=== PATIENT | male | born 1955 | race Caucasian/White ===

== ENCOUNTER 2017-03-10 12:39 | Observation (INO) | payer BC ==
[2017-03-10] MEDS ORDERED: NS 0.9% 1000 ML* 1,000 ML IV ONE (12:49)
--- NOTE | 2017-03-10 13:07 | RAD ---
Indication: Neurologic changes. CT of the brain was performed without IV contrast. There are no prior studies available for comparison. Ventricular structures are midline. No midline shift is noted. The extra-axial spaces are unremarkable. There is no evidence of intracranial mass or hemorrhage. Periventricular lucency consistent with chronic ischemic White matter change is noted. Old lacunar infarct is noted in the left basal ganglia. Mastoid air cells and paranasal sinuses are otherwise unremarkable IMPRESSION: Chronic ischemic White matter change. No intracranial mass or hemorrhage is noted. Old lacunar infarct left basal ganglia. Dr. Cain was notified of the results at 1304 hours.
[2017-03-10 13:10] LABS: Hematocrit 44 % (42-52); Hemoglobin 14.7 g/dl (14.0-18.0); Mean Corpuscular HGB Conc 34 g/dl (31-36); Mean Corpuscular Hemoglobin 32 pg (27-31); Mean Corpuscular Volume 94 fL (80-94); Mean Platelet Volume 8 um3 (7.4-10.4); Red Blood Count 4.64 10^6/ul (4.0-5.4); Red Cell Distribution Width 13 % (10.5-15); White Blood Count 8.7 10^3/ul (3.5-10.8)
[2017-03-10 13:25] LABS: Albumin 4.3 g/dL (3.2-5.2); BUN/Creatinine Ratio 16.8 (8-20); Calcium 9.9 mg/dL (8.6-10.3); EGFR African American 104.4 (>60); EGFR Non-African American 81.1 (>60); Globulin 2.9 g/dL (2-4); HDL Cholesterol 40.5 mg/dL; Potassium 4.6 mmol/L (3.5-5.0); Total Bilirubin 1.2 mg/dL (0.2-1.0); Total Protein 7.2 g/dL (6.4-8.9)
[2017-03-10 13:26] LABS: Troponin I 0.01 ng/mL (<0.04)
--- NOTE | 2017-03-10 13:36 | RAD ---
INDICATION: Code myles COMPARISON: None TECHNIQUE: An AP seated portable view obtained at 1325 hours is submitted. FINDINGS: Bones/Soft Tissues: There are no acute bony findings. Cardiomediastinal: The cardiomediastinal silhouette is normal. Lungs: There are no focal infiltrates. There is mild peripheral airspace disease in left lung base or this is related to pleural change. Pleura: Suspect pleural reactive change left hemithorax perhaps with pleural calcification. There is mild blunting of left posterior neck angle Other: None IMPRESSION: NO ACUTE FINDINGS. SUSPECTED CHRONIC PLEURAL REACTIVE CHANGE LEFT CHEST. SUGGEST CORRELATION WITH ANY PRIOR RADIOGRAPHS AND/OR FOLLOW-UP IF NONE ARE AVAILABLE
[2017-03-10] MEDS ORDERED: Iodixanol* (CONTRAST) 320 MG/ML 100 ML SDV IV ONE (14:15)
--- NOTE | 2017-03-10 14:43 | RAD ---
HISTORY: Stuttering aphasia COMPARISONS: Head CT dated March 10, 2017 TECHNIQUE: Multiple contiguous axial CT scans were obtained of the head and neck After the administration of nonionic intravenous contrast timed to the systemic arterial phase of contrast enhancement. Coronal and sagittal multiplanar reformations are submitted for review. Multiple 3-D maximum intensity projection reconstructions are also submitted for review. FINDINGS: CTA NECK: AORTIC ARCH: There is a bovine configuration, with the left common carotid artery originating from the brachiocephalic trunk. There is no ostial or proximal stenosis of the cephalic great vessels. RIGHT VERTEBRAL ARTERY: The right vertebral artery is patent along its course, without stenosis. LEFT VERTEBRAL ARTERY: The left vertebral artery is patent along its course, without stenosis. DOMINANCE: The vertebral arteries are codominant. RIGHT COMMON CAROTID ARTERY: The right common carotid artery is patent. The right carotid bifurcation occurs at C4-C5 RIGHT INTERNAL CAROTID ARTERY: There is atheromatous disease of the right carotid bifurcation, without right internal carotid artery stenosis by NASCET criteria. RIGHT EXTERNAL CAROTID ARTERY: The right external carotid artery is unremarkable. LEFT COMMON CAROTID ARTERY: The left common carotid artery is patent. The left carotid bifurcation occurs at C5 LEFT INTERNAL CAROTID ARTERY: There is atheromatous plaque of the proximal left internal carotid artery, there is narrowing of the proximal internal carotid artery of approximately 30% by NASCET criteria. LEFT EXTERNAL CAROTID ARTERY: The left external carotid artery is unremarkable. VENOUS CIRCULATION: The venous system is unremarkable. SALIVARY GLANDS: The parotid glands, submandibular glands, sublingual glands are normal. NASAL CAVITY/NASOPHARYNX: The nasal cavity and nasopharynx are normal. ORAL CAVITY/OROPHARYNX: The oral cavity is obscured by streak artifact from dental amalgam. The visualized oral cavity and oropharynx are unremarkable. LARYNGEAL APPARATUS/HYPOPHARYNX: The laryngeal apparatus and hypopharynx are normal. UPPER AIRWAY/UPPER ESOPHAGUS: The visualized upper airway and esophagus are normal. LUNG APICES: The lung apices are clear. THYROID GLAND: The thyroid gland is normal. LYMPH NODES: There is no lymphadenopathy by size criteria. BONES AND SOFT TISSUES: No bone or soft tissue abnormalities are noted. CTA HEAD: INTRACRANIAL CIRCULATION: There is no aneurysm, vascular malformation, occlusion, or stenosis of the visualized intracranial circulation. The anterior communicating artery complex is clear. Bilateral posterior communicating arteries are identified. VENOUS CIRCULATION: The venous system is unremarkable. PERFUSION: There is no obvious parenchymal perfusion deficit. HEMORRHAGE/INFARCT: There is no hemorrhage or acute infarct. MASSES/SHIFT: There is no mass or shift. EXTRA-AXIAL SPACES: There are no extra-axial fluid collections. SULCI AND VENTRICLES: The sulci and ventricles are normal in size and position for the patient's stated age. CEREBRUM: There is hypoattenuation of the periventricular and subcortical white matter. BRAINSTEM: There are no focal parenchymal abnormalities. CEREBELLUM: There are no focal parenchymal abnormalities. PARANASAL SINUSES: There is diffuse thickening of ethmoid air cells and maxillary sinuses bilaterally. ORBITS: The orbits are unremarkable. BONES AND SOFT TISSUE: No bone or soft tissue abnormalities are noted. OTHER: There is an empty sella. The sella is expanded. There is a left upper lobe lung nodule measuring 0.5 cm. IMPRESSION: 1. ATHEROMATOUS DISEASE, WITH APPROXIMATELY 30% LEFT INTERNAL CAROTID ARTERY STENOSIS BY NASCET CRITERIA. 2. NO ANEURYSM, VASCULAR MALFORMATION, OCCLUSION, OR STENOSIS OF THE VISUALIZED INTRACRANIAL CIRCULATION. 3. CHRONIC SMALL VESSEL ISCHEMIC CHANGES. 4. ENLARGED, EMPTY SELLA. 5. 0.5 CM NODULE OF THE LEFT UPPER LOBE. THE RECOMMENDATIONS FOR FOLLOWUP AND MANAGEMENT OF AN INCIDENTALLY DETECTED PULMONARY NODULE LESS THAN 6 MM IN SIZE, IN A PATIENT WITHOUT A HISTORY OF MALIGNANCY, INCLUDE NO FOLLOWUP FOR A LOW-RISK PATIENT OR OPTIONAL FOLLOWUP CT IN 12 MONTHS FOR A HIGH RISK PATIENT. NOTES: SIZE = AVERAGE LENGTH AND WIDTH; HIGH RISK IS DEFINED A HISTORY OF SMOKING OR OTHER KNOW RISK FACTORS FOR LUNG CANCER; LOW RISK IS DEFINED MINIMAL OR ABSENT HISTORY OF SMOKING OR OTHER KNOWN RISK FACTORS. Ovi, H, STACY Hagen, ASHA Martínez, et al (2017) "Guidelines for Management of Incidental Pulmonary Nodules Detected on CT Images: From the Fleischner Society 2017." Radiology; 284(1): 228-243. doi:10.1148/radiol.1634711282 CPT II Codes: 3100F
--- NOTE | 2017-03-10 16:00 | CONS ---
NEUROLOGY CONSULTATION: DATE OF CONSULT: 03/10/17 LOCATION: The patient is in the emergency department. REQUESTING PHYSICIAN: Tyler Cain MD REASON FOR CONSULT: Code Lynn. HISTORY OF PRESENT ILLNESS: Tommie Mcduffie is a 61-year-old man with a history of prediabetes, hypertension, hyperlipidemia and seasonal allergies who woke up this morning with right hand numbness. He and his did not think much of it because he in the past has had cervical stenosis and had similar numbness in his hand, though he had not really experienced numbness like this for many years. He and his went to [place] to go [employer] and at approximately 11:45, he had a brief episode of expressive aphasia. His reports that he was trying to speak, but none of the words made any sense. This lasted 15 to 20 seconds and then resolved. Fifteen minutes later, he had another similar episode. At that point, they decided to come to the emergency department for evaluation. With each episode of aphasia, his hand numbness would increase, but in between his hand never really felt normal. They note that 2 weeks ago, he also had an episode of right hand numbness associated with brief garbled speech, which only lasted seconds as well. Over the past couple of weeks, he has had recurrent intermittent periods of right hand numbness as well. The numbness today; however, has persisted much longer than any of his previous episodes. He tells me that when he was 20 years old, he had a "blood clot" in his brain. He is not sure of details beyond this, but says that he suddenly developed right -sided weakness and then while in the ambulance being transported here that resolved. However, he says he was transferred to [place] and spent a week there , though by his recollection he was back to normal and did not require rehab after that stay. He is not clear if he had bleeding in the brain or if he had an ischemic stroke or something else. He and his originally told me he has not had other problems with blood clots aside from superficial phlebitis, but then stated that he was told he'd had a DVT in his "hip" by Dr. Mcnally. Ever since then; however, he thinks he has been on an aspirin a day and his says he has been taking an aspirin for as long as she has known him. Neurology consultation was requested to evaluate for acute stroke and treatment recommendations. PAST MEDICAL HISTORY: 1. Prediabetes/diabetes. 2. Hypertension. 3. Seasonal allergies. 4. Hyperlipidemia. 5. Phlebitis. 6. Glaucoma. PAST SURGICAL HISTORY: He has had varicose vein surgery. HOME MEDICATIONS: 1. Cosopt drops. 2. Lumigan drops. 3. Aspirin 325 mg daily. 4. Pravastatin 40 mg daily. 5. Metformin 500 mg daily. 6. Lisinopril 2.5 mg daily. 7. Doxycycline 100 mg b.i.d., which he has been taking for an upper respiratory infection. ALLERGIES: No known drug allergies listed in [employer], but the patient reports to me that he has an allergy to PENICILLIN with unknown reaction. FAMILY HISTORY: Noncontributory at this time. SOCIAL HISTORY: He has been an intermittent smoker over the years. More recently he has been smoking for the past 4 years, approximately half pack a day and has been cutting down significantly since December and quit about 4 days ago. He does not drink any significant alcohol and does not use illicit drugs. 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 REVIEW OF SYSTEMS: He has had an upper respiratory infection recently and is on antibiotics. He denies any cardiac symptoms such as palpitations or chest pains. PHYSICAL EXAMINATION: Vital Signs: Temperature 96.1; blood pressure 109/89 in the computer, but when I was in the room it was 154/90; heart heart rate 65; oxygen saturation is 100% on room air. On general examination, he is in no acute distress. He was initially able to speak relatively fluently, but did have a brief episode when I was in the room where he suddenly could not get his words out and when presented with a pen, he called it a tap. This resolved within about 10 seconds and I reclined him down to about 45 degrees. His heart is in a regular rate and rhythm. His skin is intact. There is no extremity edema. Lungs are clear. On neurologic examination, he is fully awake, alert, and oriented. He, when presented with the stroke cards, was unable to name a cactus or a hammock, but his says he would not be able to name a hammock at baseline because he has a bad memory. He has no significant dysarthria and his feels his speech is at his baseline. He is able to read off the stroke cards. Pupils were equal and round at 4 mm and the right reacted to 3 mm while the left was to 2 mm. He does have a history of eye surgery bilaterally for his glaucoma. There is some irregularity in the iris on the left superior margin. His gaze is mid position and his versions are full without nystagmus. Frost are full to confrontation with no extinction. Facial sensation and musculature is full and symmetric. Hearing is intact to voice. The palate elevates symmetrically and the tongue is midline. On motor examination, he has normal bulk and tone in the upper and lower extremities. Strength was full in the bilateral upper extremities and left lower extremity. I questioned whether there was some slight give in his right hip flexor and he seemed to struggle more with raising his right leg off the bed, but did not drift significantly. There was no pronator drift. Sensory exam, right hand has decreased light touch in the fingertips in the dorsum of the hand. [id number] was intact without ataxia. I did not ambulate him. Reflexes were 2+ in the upper extremities, 2+ at the right knee, 1+ at the left knee, but downgoing toes. There is no ankle clonus. NIH stroke scale is 2 (1 for aphasia and 1 sensory). DIAGNOSTIC STUDIES/LAB DATA: His CBC is overall unremarkable with slightly elevated MCH of 32, monocyte percentage of 10 which is elevated. Chemistry panel is notable for a glucose of 109 and nonfasting lipid panel shows triglycerides 179, total cholesterol 171, LDL 95, and HDL 40.5. His total bilirubin is 1.2. Coagulation studies are normal. His head CT was personally reviewed and this shows a probable old infarct in the left basal ganglia near the head of the caudate. In addition, there is periventricular hypodensities bilaterally which are worse on the left. These appear to be chronic, but it is unclear if there could be some subacute component. Finally, I question whether on slice 10, there could be suggestion of a hyperdense MCA on the left. IMPRESSION: Tommie Mcduffie is a 61-year-old man with vascular risk factors including diabetes, prediabetes as well as hypertension and a questionable history of an old stroke at the age of 20 which presumably affected the left hemisphere who presented to the hospital with the acute onset of transient expressive aphasia at 11:45 this morning, but occurring in the context of more fixed right hand numbness which was present upon awakening. I am concerned about a left MCA partial stroke here which could be subcortical in nature, but given the CT scan which could suggest the presence of a partially dense MCA on the left, we are going to send him for a CTA of the head and neck urgently at this time. I do not feel that he is a candidate for tPA given the presence of the fixed numbness in his right hand which he woke up with and which does not seem to follow a single nerve distribution, and cannot reliably be attributed to a cervical radiculopathy which he has not had problems with for years. At this point, we will hold on admission to the hospital pending the results of the CT angiogram since this could possibly slip box changer. If no large vessel occlusion is seen, then he should be admitted to the hospital for stroke workup including MRI scan of the brain, fasting lipid profile, hemoglobin A1c, telemetry and echocardiogram with bubble study. Thank you for this consultation. I will follow the patient along. [id number]/[facility] #: [id number] IDALIA
[2017-03-10 16:45] LABS: Urine Bilirubin Negative (Negative); Urine Glucose Negative (Negative); Urine Nitrite Negative (Negative)
--- NOTE | 2017-03-10 18:21 | RAD ---
INDICATION: CVA. COMPARISON: Comparison is made with a prior CT of the brain from March 10, 2017. TECHNIQUE: Sagittal T1, axial T1, T2, susceptibility, FLAIR and diffusion weighted images were obtained. FINDINGS: The ventricles, cisterns and sulci are prominent consistent with diffuse atrophy. There are prominent areas of increased signal intensity on T2-weighted images present within the subcortical and periventricular white matter most consistent with severe chronic small vessel ischemic changes. There are several small areas of restricted diffusion present in the posterior left parietal lobe involving the cortex and subcortical white matter suggestive of an acute to subacute infarct. There is no evidence for hemorrhage. There is an empty sella present. There is mucosal thickening within the maxillary and ethmoid sinuses suggestive of chronic sinusitis. IMPRESSION: 1. THERE ARE SEVERAL SMALL AREAS OF RESTRICTED DIFFUSION IN THE POSTERIOR LEFT PARIETAL LOBE SUGGESTIVE OF AN ACUTE TO SUBACUTE INFARCT. 2. FINDINGS MOST CONSISTENT WITH SEVERE CHRONIC SMALL VESSEL ISCHEMIC CHANGES. 3. EMPTY SELLA.
[2017-03-10] MEDS ORDERED: Dextrose 50% Syringe 50 ML* 25 GM/50 ML SYRINGE IV PUSH PRN (19:47)
[2017-03-10] MEDS: DOXYcycline CAP(*) 100 MG PO SCH (20:29)
[2017-03-10] MEDS ORDERED: Atorvastatin* 10 MG TAB PO SCH (21:00)
[2017-03-10] MEDS: Heparin VIAL(*) 5000 UNITS/ML VIAL (FIVE THOUSAND) SUBCUT SCH (21:12)
--- NOTE | 2017-03-10 21:40 | ED ---
Josy Sellers Nilda, scribed for Tyler Cain MD on 03/10/17 at 1305 . Neurological HPI - HPI Summary HPI Summary: This patient is a 61 year old M [facility] accompanied by with a chief complaint of stroke-like symptoms today. states pt woke up with RUE numbness and tingling. She notes this has also happened a few days ago which is why they originally thought he pinched a nerve. Per , 1 hour ago, pt had 2 episodes of "speaking gibberish" that lasted for about 20 seconds. She states he was slow to respond but notes that he is currently at his baseline behavior. also states 2 weeks ago pt had severe head cold and is currently on a course of Tetracycline derivative. Patient denies current headache, but states that he does not feel his normal speech has returned. Symptoms aggravated and alleviated by nothing. Medications include Claritin, full aspirin, Lisinopril ( fot HTN), and Metformin (for DM). He is not on blood thinners currently. - History of Current Complaint Chief Complaint: EDNeurologicalDeficit Stated Complaint: STROKE LIKE SYMPTOM Time Seen by Provider: 03/10/17 12:49 Hx Obtained From: Patient, Family/Time Broker - Onset/Duration: Sudden Onset, Started hours ago - 1, Still Present Timing: Sudden Onset - 20 seconds Current Severity: Mild Neurological Deficit Location: RUE - numbness and tingling Pain Intensity: 0 Pain Scale Used: 0-10 Numeric Character: Other: - slow response, "speaks gibberish" Aggravating: Nothing Alleviating: Nothing Associated Signs and Symptoms: Positive: Impaired Speech, Numbness - RUE. Negative: Headache, Pain TPA Considered: No - Allergy/Home Medications Allergies/Adverse Reactions: Allergies Allergy/AdvReac Type Severity Reaction Status Date / Time No Known Allergies Allergy Verified 03/10/17 12:44 Home Medications: Home Medications Bimatoprost 0.01% OPHTH (NF) [Lumigan 0.01% OPHTH (NF)] 1 drop RIGHT EYE DAILY 03/10/17 [History Confirmed 03/10/17] DOXYcycline CAP(*) [DOXYcycline 100MG CAP(*)] 100 mg PO BID 03/10/17 [History Confirmed 03/10/17] Dorzolamide/Timolol OPTH (NF) [Cosopt (NF)] 1 drop RIGHT EYE DAILY 03/10/17 [ History Confirmed 03/10/17] Lisinopril [Lisinopril 2.5 MG-] 2.5 mg PO DAILY 03/10/17 [History Confirmed 03/15] Pravastatin (NF) [Pravachol (NF)] 40 mg PO DAILY 03/10/17 [History Confirmed 03/15] PMH/Surg Hx/FS Hx/Imm Hx Endocrine/Hematology History: Reports: Hx Diabetes Cardiovascular History: Reports: Hx Hypertension Sensory History: Reports: Hx Glaucoma - right eye Infectious Disease History: No Infectious Disease History: Denies: Traveled Outside the [place] in Last 30 Days - Family History Known Family History: Positive: Cardiac Disease, Other - negative CVA - Social History Lives: With Family Review of Systems Negative: Fever, Chills Negative: Erythema Negative: Sore Throat Negative: Chest Pain Negative: Shortness Of Breath, Cough Negative: Abdominal Pain, Nausea Negative: dysuria, hematuria Negative: Myalgia, Edema Negative: Rash Neurological: Other - slow response and difficulty with speech; negative dizziness Positive: Numbness - RUE. Negative: Headache All Other Systems Reviewed And Are Negative: Yes Physical Exam - Summary Physical Exam Summary: Constitutional: Well-developed, Well-nourished, Alert. (-) Distressed Skin: Warm, Dry HENT: Normocephalic; Atraumatic Eyes: Conjunctiva normal Neck: Musculoskeletal ROM normal neck. (-) JVD, (-) Stridor, (-) Tracheal deviation Cardio: Rhythm regular, rate normal, Heart sounds normal; Intact distal pulses; The pedal pulses are 2+ and symmetric. Radial pulses are 2+ and symmetric. (-) Murmur Pulmonary/Chest wall: Effort normal. (-) Respiratory distress, (-) Wheezes, (-) Rales Abd: Soft. (-) Tenderness, (-) Distension, (-) Guarding, (-) Rebound Musculoskeletal: (-) Edema, reported decreased sensation in RUE. Lymph: (-) Cervical adenopathy Neuro: Alert, Oriented x3, Strength normal, Cranial nerves II-XII are grossly intact. (-) Dysmetria, (-) Nystagmus, (-) Ataxia by finger to nose testing, unable to repeat phrase, "you cant teach an old dog new tricks." Unable to name the word "hanna." Psych: Mood and affect Normal Triage Information Reviewed: Yes Vital Signs On Initial Exam: Initial Vitals Temp Pulse Resp BP Pulse Ox 96.1 F 65 16 109/89 100 03/10/17 12:44 03/10/17 12:44 03/10/17 12:44 03/10/17 12:44 03/10/17 12:44 Vital Signs Reviewed: Yes Diagnostics - Vital Signs Vital Signs Temp Pulse Resp BP Pulse Ox 03/10/17 12:44 96.1 F 65 16 109/89 100 - Laboratory Result Diagrams: 03/10/17 13:02 03/10/17 13:02 Lab Statement: Any lab studies that have been ordered have been reviewed, and results considered in the medical decision making process. - Radiology CXR Radiology Interpretation Completed By: Radiologist - CXR, per radiologist, reveals NO ACUTE FINDINGS. SUSPECTED CHRONIC PLEURAL REACTIVE CHANGE LEFT CHEST. SUGGEST CORRELATION WITH ANY PRIOR RADIOGRAPHS AND/OR FOLLOW-UP IF NONE ARE AVAILABLE. Dr. Cain has reviewed this radiology report. - CT Brain CT Interpretation Completed By: Radiologist - Chronic ischemic White matter change. No intracranial mass or hemorrhage is noted. Old lacunar infarct left basal ganglia. Dr. Cain reviewed this report. CTA Head/Neck CT Interpretation Completed By: Radiologist - 1. ATHEROMATOUS DISEASE, WITH APPROXIMATELY 30% LEFT INTERNAL CAROTID ARTERY STENOSIS BY NASCET CRITERIA. 2. NO ANEURYSM, VASCULAR MALFORMATION, OCCLUSION, OR STENOSIS OF THE VISUALIZED INTRACRANIAL CIRCULATION. 3. CHRONIC SMALL VESSEL ISCHEMIC CHANGES. 4. ENLARGED, EMPTY SELLA. 5. 0.5 CM NODULE OF THE LEFT UPPER LOBE. THE RECOMMENDATIONS FOR FOLLOWUP AND MANAGEMENT OF AN INCIDENTALLY DETECTED PULMONARY NODULE LESS THAN 6 MM IN SIZE, IN A PATIENT WITHOUT A HISTORY OF MALIGNANCY, INCLUDE NO FOLLOWUP FOR A LOW-RISK PATIENT OR OPTIONAL FOLLOWUP CT IN 12 MONTHS FOR A HIGH RISK PATIENT. Dr. Cain reviewed this report. - EKG 1305 Cardiac Rate: NL EKG Rhythm: Sinus Rhythm - 69 bpm EKG Interpretation: no STEMI NIH Scale - NIH Scale Level of Consciousness: Alert/Keenly Responsive Ask Patient the Month and His/Her Age: Both Correct Ask Pt to Open/Close Eyes and Electrician Sound/Release Non-Paretic Hand: Both Correctly Best Gaze (Only Horizontal Eye Movement): Normal Visual Field Testing: Complete Hemianopia Facial Paresis-Pt to Smile & Close Eyes or Grimace Symmetry: Normal/Symmetrical Motor Function - Right Arm: No Drift-Holds 10 Seconds Motor Function - Left Arm: No Drift-Holds 10 Seconds Motor Function - Right Leg: No Drift-Holds 10 Seconds Motor Function - Left Leg: No Drift-Holds 10 Seconds Limb Ataxia-Must be out of Proportion to Weakness Present: Absent Sensory (Use Pinprick to Test Arms/Legs/Trunk/Face): Pinprick Less on Affected Best Language (Describe Picture, Name Items): Some Loss Dysarthria (Read Several Words): Normal Extinction and Inattention: No Abnormality Total Score: 4 Course/Dx - Course Assessment/Plan: Code Lynn 1252. This patient is a 61 year old M presenting [facility] accompanied by with a chief complaint of stroke-like symptoms today. states pt woke up with RUE numbness and tingling. She notes this has also happened a few days ago which is why they originally thought he pinched a nerve. Per , 1 hour ago, pt had 2 episodes of speaking gibberish that lasted for about 20 seconds. She states he was slow to respond but notes that he is currently at his baseline behavior. also states 2 weeks ago pt had severe head cold and is currently on a course of Tetracycline derivative. Patient denies current headache, but states that he does not feel his normal speech has returned. Symptoms aggravated and alleviated by nothing. Medications include Claritin, full aspirin, Lisinopril ( fot HTN), and Metformin (for DM). He is not on blood thinners currently. NIH = 4. Pending EKG, CXR, and CT Brain. An EKG reveals 69 bpm, NSR, no STEMI. CXR, per radiologist, reveals NO ACUTE FINDINGS. SUSPECTED CHRONIC PLEURAL REACTIVE CHANGE LEFT CHEST. SUGGEST CORRELATION WITH ANY PRIOR RADIOGRAPHS AND/OR FOLLOW-UP IF NONE ARE AVAILABLE. Brain CT, per radiologist, reveals chronic ischemic White matter change. No intracranial mass or hemorrhage is noted. Old lacunar infarct left basal ganglia. Dr. Cain reviewed these radiology reports. 1327 Dr. Naik ( Neuro) agrees to see pt in ED. 2140 Dr. Naik evaluated pt in ED and requests emergent CTA. She requested they be code status. 1444 Dr. Naik requests hypocoagulable workup and admission of pt. CTA Head/Neck, per radiologist, reveals: 1. ATHEROMATOUS DISEASE, WITH APPROXIMATELY 30% LEFT INTERNAL CAROTID ARTERY STENOSIS BY NASCET CRITERIA. 2. NO ANEURYSM, VASCULAR MALFORMATION, OCCLUSION, OR STENOSIS OF THE VISUALIZED INTRACRANIAL CIRCULATION. 3. CHRONIC SMALL VESSEL ISCHEMIC CHANGES. 4. ENLARGED, EMPTY SELLA. 5. 0.5 CM NODULE OF THE LEFT UPPER LOBE. THE RECOMMENDATIONS FOR FOLLOWUP AND MANAGEMENT OF AN INCIDENTALLY DETECTED PULMONARY NODULE LESS THAN 6 MM IN SIZE, IN A PATIENT WITHOUT A HISTORY OF MALIGNANCY, INCLUDE NO FOLLOWUP FOR A LOW-RISK PATIENT OR OPTIONAL FOLLOWUP CT IN 12 MONTHS FOR A HIGH RISK PATIENT. Dr. Cain has reviewed this radiologist report. 1557 Dr. Morrow ( hospitalist) accepts pt for admission. Pt is stable and will be admitted with Dx of CVA. Pt understands and is agreeable with this plan. 60 mins CCT. - Diagnoses Provider Diagnoses: CVA (cerebral vascular accident) - Physician Notifications Discussed Care Of Patient With: Camila Naik - Neuro Time Discussed With Above Provider: 13:27 Instructed by Provider To: MD Will See In ED - Critical Care Time Critical Care Time: 30-74 min - 60 mins Discharge - Discharge Plan Condition: Stable Disposition: ADMITTED TO [facility] The documentation as recorded by the Josy dave Nilda accurately reflects the service I personally performed and the decisions made by Payton hinkle Jerry, MD.
--- NOTE | 2017-03-10 22:39 | HP ---
CC: Dr. Melissa Birmingham; Dr. Camila Naik * HISTORY AND PHYSICAL: DATE OF ADMISSION: 03/10/17 PRIMARY CARE PROVIDER: Dr. Melissa Birmingham. ATTENDING PHYSICIAN: Dr. Feroz Morrow * (dictated by Heidy Soliz NP). CHIEF COMPLAINT: Transient expressive aphasia and right hand numbness. HISTORY OF PRESENT ILLNESS: Mr. Mcduffie is a 61-year-old male with past medical history significant for prediabetes mellitus, hypertension, hyperlipidemia, seasonal allergies, and history of phlebitis with lower extremity DVT at age 20 and possible blood clot in his brain at age 20, glaucoma , who presents to the emergency room with transient expressive aphasia that started at approximately 11:45 today. The patient states that 2 weeks ago, he had fever when he developed an upper respiratory infection. He was being treated for doxycycline. He has 2 days left. He denies any chills, chest pain, shortness of breath, cough, nausea, vomiting, diarrhea, lightheadedness, dizziness. The patient noted right hand numbness upon awakening today and then while shopping with his at approximately 11:45 noted difficulty talking. It is to note that approximately 2 weeks ago, the patient also noted to have trouble speaking. He sat down and rested and this resolved. He has also been having intermittent right hand numbness for a few weeks. Due to his symptoms, he presented to the emergency room for further evaluation of his symptoms. While in the emergency room, the patient received normal saline. He had an EKG showing a sinus rhythm at rate of 69. He had a chest x-ray showing no acute findings. He had a head CT showing chronic ischemic white matter changes. He was seen in consultation by Dr. Camila Naik with Neurology, who recommended the patient undergo a CTA of his head to evaluate for possible carotid artery stenosis. He was found to have 30% left internal carotid artery stenosis. The patient's symptoms resolved, although he does note that while his family was visiting, they reported right-sided transient right facial drooping that has since resolved. Hospitalists were asked to evaluate the patient for admission. PAST MEDICAL HISTORY: 1. Prediabetes mellitus. 2. Hypertension. 3. Hyperlipidemia. 4. Seasonal allergies. 5. Phlebitis. 6. Glaucoma. 7. Possible CVA at age 20. 8. DVT at age 20. PAST SURGICAL HISTORY: 1. Status post varicose vein surgery. 2. Status post bilateral eye surgery for glaucoma. HOME MEDICATIONS: Include: 1. Cosopt 1 drop to the right eye daily. 2. Lumigan 0.01% one drop to the right eye daily. 3. Aspirin 325 mg oral daily. 4. Pravastatin 40 mg oral daily. 5. Metformin 500 mg oral daily. 6. Lisinopril 2.5 mg oral daily. 7. Doxycycline 100 mg twice daily, patient has 2 days left. ALLERGIES: PENICILLIN. FAMILY HISTORY: The patient reports that his father had two myocardial infarctions in the past with his second one at age 85. His maternal uncle had a history of diabetes mellitus. The patient's mother had a history of ovarian cancer. There is no family history of cerebrovascular accidents. SOCIAL HISTORY: The patient has been an intermittent smoker for many years. He most recently smoked for the last 4 years, half pack a day. He reports quitting 4 days ago. He denies alcohol or recreational drug use. His , Christiana Mcduffie, will be his surrogate decision maker in the event he is unable to make decisions for himself. REVIEW OF SYSTEMS: I performed a 14-point review of systems. All the pertinent positives and negatives are mentioned in the history of present illness. The remaining review of systems are negative. PHYSICAL EXAMINATION GENERAL APPEARANCE: The patient is alert, pleasant, appears to be in no acute distress. VITAL SIGNS: Temperature 96.1, heart rate 66, respiratory rate 18, O2 sat 98% on room air, blood pressure 157/91. HEENT: Normocephalic, atraumatic. Pupils are equal and reactive to light. Extraocular movements are intact. RESPIRATORY: There is no accessory muscle use. Her lungs are clear to auscultation bilaterally. CARDIOVASCULAR: Regular rate and rhythm. S1, S2 present. There are no murmurs , rubs, or gallops heard. ABDOMEN: Soft, nontender, nondistended. There are bowel sounds present x4. EXTREMITIES: There is no lower extremity edema. DP and PT pulses are 2+ and symmetric. MUSCULOSKELETAL: There is no clubbing or cyanosis noted. The patient exhibits good strength in all extremities. NEUROLOGIC: The patient is alert and oriented x4. Cranial nerves II through XII are grossly intact. The patient's hand paint stock clerk are equal. He has no pronator drift. He is able to perform finger to nose bilaterally without difficulty. He is able to lift both legs off the bed bilaterally. He is able to dorsi and plantarflex bilaterally. He is able to perform heel from ankle to knee bilateral without difficulty. The patient's smile is symmetric. His tongue is midline. PSYCHOLOGICAL: The patient is calm and cooperative. SKIN: There are no rashes or abnormalities seen. DIAGNOSTIC STUDIES/LABORATORY DATA: Sodium 136, potassium 4.6, chloride 105, CO2 23, BUN 16, creatinine 0.95, glucose 109. White blood cell count 8.7, hemoglobin 14.7, hematocrit 44, and platelet count 289. Bilirubin 1.20. EKG shows sinus rhythm, rate of 69. There are no acute signs of ischemia. There are no previous EKGs for comparison. 1. Chest x-ray from today. Radiologist's impression: No acute findings. Suspected chronic pleural reactive change to the left chest. Suggest correlation with any prior radiographs and/or follow up if none available. 2. Brain CT from today. Radiologist's impression: Chronic ischemic white matter change. No intracranial mass or hemorrhage is noted. Old lacunar infarct of the left basal ganglia. 3. Head CTA from today. Radiologist's impression: Atheromatous disease with approximately 30% left internal carotid artery stenosis by NASCET criteria. No aneurysm, vascular malformation, occlusion or stenosis of the visualized intracranial circulation. Chronic small vessel ischemic changes. Enlarged empty sella, 0.5 cm nodule of the left upper lobe. The recommendations for followup and management of incidentally detected pulmonary nodule is less than 6 mm in size in a patient without a history of malignancy include no followup for a low risk patient or optional followup CT in 12 months for a high risk patient. IMPRESSION: Mr. Mcduffie is a 61-year-old male with past medical history significant for prediabetes mellitus, hypertension, hyperlipidemia, seasonal allergies, phlebitis, glaucoma, possible cerebrovascular accident at age 20 and DVT, who presented to the emergency room with complaints of transient expressive aphasia and right hand numbness. He will be admitted as an observation to rule out transient ischemic attack versus cerebrovascular accident. ASSESSMENT AND PLAN: 1. Transient ischemic attack versus cerebrovascular accident. The patient has already been seen in consultation by Dr. Naik. His head CT was negative for an acute cerebrovascular accident. He had a CTA of his head showing 30% left internal carotid artery stenosis. We will place him on telemetry. We will get an echocardiogram with a bubble study. We will get an MRI of his brain. Check fasting lipids in the morning and add a hemoglobin A1c to his ED labs with neuro checks q.4 hours. We will continue him on his full dose aspirin. We will continue him on his current dose of statin until his fasting lipids are back in the morning. The patient has passed a swallow eval and was able to eat. 2. Incidental lung nodule. The patient has a 0.5 cm nodule of the left upper lobe. I do recommend followup management of an incidentally detected pulmonary nodule of less than 6 mm in size in a patient without a history of malignant hypertension includes no followup for low risk patients or optional followup CT in 12 months for high risk patients. 3. Upper respiratory infection. Continue patient's course of doxycycline. 4. Diabetes mellitus. We will hold the patient's metformin. We will get fingersticks a.c. and h.s. We will place him on lispro sliding scale. He will be on a consistent carbohydrate diet. 5. Hypertension. We will hold the patient's lisinopril to allow for permissive hypertensive overnight. 6. Hyperlipidemia. We will continue the patient on his home pravastatin for now. We will check fasting lipids in the morning and readjust as necessary. 7. Glaucoma. The patient will be continued on his home eye drops. 8. Upper Respiratory Infection. We will continue the patient on doxycycline for 2 more days to complete his course. 9. Fluids, electrolytes, and nutrition. The patient will be placed on consistent carbohydrate, heart healthy diet. 10. Code status. Full code. 11. DVT prophylaxis. The patient is at moderate risk and will have subcu heparin. 12. Disposition. Observation. TIME SPENT: Time for this admission was approximately 60 minutes, greater than half of that was spent with the patient and discussing medications, past medical history and the events leading to his arrival today, performing the physical examination. The case has been reviewed with the patient attending, Dr. Morrow, who agrees with the plan of care. Reviewed by DEBBIE CAUSEY 03/18/17 [id number]/[facility] #: [id number] IDALIA
[2017-03-11] MEDS: Heparin VIAL(*) 5000 UNITS/ML VIAL (FIVE THOUSAND) SUBCUT SCH ×2 (05:32→13:36)
[2017-03-11 06:13] LABS: HDL Cholesterol 35.1 mg/dL
[2017-03-11] MEDS: Insulin LISPRO* 1 UNITS UNIT SUBCUT SCH ×3 (07:47→16:29)
[2017-03-11] MEDS: DOXYcycline CAP(*) 100 MG PO SCH (08:57)
[2017-03-11] MEDS ORDERED: Aspirin TAB* 325 MG PO SCH (09:00)
[2017-03-11] MEDS ORDERED: PTO: Bimatoprost 0.01% OPHTH (NF) 2.5 ML BTL RIGHT EYE SCH (09:00)
[2017-03-11] MEDS ORDERED: PTO: Dorzolamide/Timolol OPTH (NF) 10 ML BOT RIGHT EYE SCH (09:00)
[2017-03-11] MEDS ORDERED: Influenza VAC *QUAD* 2017-18* 0.5 ML SYRINGE IM ONE (09:00)
--- NOTE | 2017-03-11 13:06 | ECHO ---
Patient: ALESSIO ANTONIO [facility] Rec#: [id number] : 1955 Date: 03/11/2017 Age: 61y Height: 177.8 cm / 70.0 in Weight: 90.72 kg / 199.9 lbs Sex: M BSA: 2.09 Room#: 443 Admit Date#: 03/10/2017 Type: Inpatient Referring: Heidy Roach NP Reading: Guerda Leigh MD Spindle Tester: Salima Green RDCS,RDMS CC: Melissa Birmingham MD Transthoracic Echocardiogram Indication: TIA BP: 126/66 HR: 68 Rhythm: NSR Findings History: DM, HTN, HLD, DVT Technical Comments: The study quality is fair. Left Ventricle: The left ventricular chamber size is normal. Mild concentric left ventricular hypertrophy is observed. Basal interventricular septum shows moderate thickening. Global left ventricular wall motion and contractility are within normal limits. The estimated ejection fraction is 50-55%. Abnormal left ventricular diastolic filling is observed, consistent with impaired relaxation. Left Atrium: The left atrial chamber size is normal. Right Ventricle: The right ventricular chamber size and systolic function are within normal limits. The right ventricle wall thickness is moderately increased. Right Atrium: The right atrial cavity size is normal. The bubble study is negative. A patent foramen ovale is not demonstrated with color Doppler and agitated contrast. Aortic Valve: The aortic valve is trileaflet. The aortic valve leaflets are mildly thickened. Mild aortic leaflet calcification is visualized. There is a trace of aortic regurgitation. There is no evidence of aortic stenosis. Mitral Valve: The mitral valve leaflets appear normal. There is a trace of mitral regurgitation. There is no evidence of mitral stenosis. Tricuspid Valve: The tricuspid valve leaflets are normal. There is trace tricuspid regurgitation. Unable to estimate the right ventricular systolic pressure. Pulmonic Valve: There is no evidence of pulmonic valve thickening. There is no evidence of pulmonic regurgitation. Pericardium: There is no significant pericardial effusion. Aorta: The aortic root appears normal. There is no dilatation of the aortic arch. Pulmonary Artery: The main pulmonary artery is not well visualized. Venous: The inferior vena cava is not visualized. Contrast: Intravenous agitated saline contrast was used to assess intracardiac shunting. Conclusions Mild concentric left ventricular hypertrophy is observed. Global left ventricular wall motion and contractility are within normal limits. The estimated ejection fraction is 50-55%. Abnormal left ventricular diastolic filling is observed, consistent with impaired relaxation. The right ventricle wall thickness is moderately increased. The right ventricular chamber size and systolic function are within normal limits. The bubble study is negative. The aortic valve leaflets are mildly thickened with trace of aortic regurgitation. There is a trace of mitral regurgitation. There is trace tricuspid regurgitation. No prior study to compare. Measurements Name Value Normal Range RVIDd (AP) 2D 2.3 cm (0.9 - 2.6) RVDdMajor (2D) 2.5 cm (2.2 - 4.4) RAd ISD 4CH 3.7 cm (3.4 - 4.9) RA (A4C)W 3.4 cm (2.9 - 4.6) IVSd (2D) 1.5 cm (0.6 - 1) LVPWd (2D) 1.3 cm (0.6 - 1) LVIDd (2D) 4.1 cm (3.6 - 5.4) LVIDs (2D) 2.8 cm - LV FS (2D) 32 % (25 - 45) Aortic Annulus 2 cm (1.4 - 2.6) Ao root diameter (2D) 3 cm (2.1 - 3.5) Ascending Ao 3.2 cm (2.1 - 3.4) Aortic arch 3.4 cm (1.8 - 3.4) LA dimension (AP) 2D 3.5 cm (2.3 - 3.8) LAd ISD 4CH 3.6 cm (2.9 - 5.3) LA ISD 4CH W 3.6 cm (2.5 - 4.5) Name Value Normal Range LA ESV SP 4CH (A/L) 24.45 ml - LA ESV SP 2CH (A/L) 34.44 ml - LA ESV BP (A/L) 29.54 ml - LA ESV BP (A/L) index 14 ml/m2 - LA ESV SP 4CH (MOD) 20.94 ml - LA ESV SP 2CH (MOD) 29.83 ml - Name Value Normal Range MV E-wave Vmax 0.5 m/sec - MV deceleration time 308 msec - MV A-wave Vmax 0.6 m/sec - MV E:A ratio 0.8 ratio - P. vein S-wave Vmax 0.5 m/sec - P. vein D-wave Vmax 0.2 m/sec - P. vein S:D Vmax ratio 1.8 ratio - P. vein A-wave duration 114 msec - LV septal e' Vmax 0.05 m/sec - LV lateral e' Vmax 0.07 m/sec - LV E:e' septal ratio 10 ratio - LV E:e' lateral ratio 8 ratio - Name Value Normal Range AV Vmax 1.1 m/sec - AV VTI 22 cm - AV peak gradient 5 mmHg - AV mean gradient 2.5 mmHg - LVOT Vmax 0.8 m/sec - LVOT VTI 16.5 cm - LVOT peak gradient 2.6 mmHg - LVOT mean gradient 1.3 mmHg - KRISTA Vmax 0.7 m/sec - Name Value Normal Range RAP 8 mmHg - Name Value Normal Range PV Vmax 0.9 m/sec - PV peak gradient 3.2 mmHg -
[2017-03-11] MEDS ORDERED: Clopidogrel TAB* 75 MG PO SCH (15:00)
[2017-03-11 15:35] VITALS: BP 132/71
[2017-03-11] MEDS ORDERED: Atorvastatin* 40 MG TAB PO SCH ×2 (17:00)
--- NOTE | 2017-03-12 09:38 | PN ---
PROGRESS NOTE: DATE OF FOLLOWUP: 03/11/17 LOCATION: The patient is an inpatient. HISTORY: No acute overnight events. The patient feels better, but still complaints of some numbness in his fingertips on the right. He had one more episode of speech disturbance, which lasted just a fraction of a second yesterday in the emergency department after I saw him, but nothing else since. He has been having no difficulty with using utensils today. He has undergone his MRI scan as well as his CTA. MEDICATIONS: 1. Atorvastatin 40 mg. 2. Lumigan drops. 3. Plavix 75 mg. 4. Cosopt drops. 5. Doxycycline 100 mg twice daily. 6. Heparin 5000 units q.8. 7. Insulin sliding scale. PHYSICAL EXAMINATION: Vital Signs: Temperature 98.2, blood pressure 132/71, heart rate 70, oxygen saturation 96% on room air. On general examination, he is in no acute distress. His heart is in regular rate and rhythm with no murmurs, rubs, or gallops. Lungs are clear to auscultation bilaterally. There are no carotid bruits. On neurologic examination, he has full versions without nystagmus. His pupils are equal, round, and reactive from 4 to 3 mm bilaterally. Frost are full to confrontation. Facial sensation and musculature is slow and symmetric. On motor examination, he has mild pronator drift on the right. There is otherwise, no focal weakness on confrontational testing. On sensory examination, he has mild temperature change on the right dorsum of his hand. Light touch is intact in his fingertips bilaterally. Reflexes are 2+ throughout. [id number] is without ataxia. LABORATORY DATA: His fasting lipid panel shows triglycerides 205, cholesterol 165, LDL 89, HDL 35.1. His hemoglobin A1c is 6.2. He has hypercoagulable workup that is pending. His brain MRI showed multiple small foci of diffusion restriction in the right parietal region in the cortical ribbon. In addition, there was a small subacute focus in the subcortical right parietal lobe as well. In addition, there is left greater than right significant and confluent small vessel ischemic changes. His CT angiogram of the head and neck did not demonstrate any evidence of a major vessel occlusion or significant stenosis. He has some atheromatous disease with approximately 30% left internal carotid artery stenosis. He also had an incidentally noted 0.5 cm nodule of the left upper lobe of the lung. His transthoracic echocardiogram showed ejection fraction of 50 to 55% with mild concentric left ventricular hypertrophy. The bubble study was negative. IMPRESSION: Tommie Mcduffie is a 61-year-old man with a history of a possible stroke at the age of 20, which affected his right side of his body, as well as DVT in his left hip in the past, who now presents with small foci of ischemia in his left parietal lobe. He has a hypercoagulable workup pending given this past history. His aspirin has been changed to Plavix. In addition, his statin has been changed from Pravachol to atorvastatin. He was informed that his goal blood pressure as an outpatient would be around 120/80 and he currently takes only a small dose of lisinopril. So, he should follow up on this with his primary care provider. I will see him as an outpatient in about 8 weeks and we can follow up on the hypercoagulable workup at that time. [id number]/[facility] #: [id number] MTDJalen
[2017-03-12 13:06] LABS: Protein C Activity 114 % (70 - 150)
--- NOTE | 2017-03-12 13:19 | DS ---
CC: Dr. Melissa Birmingham; Dr. Camila Naik.* DISCHARGE SUMMARY: DATE OF ADMISSION: 03/10/17 DATE OF DISCHARGE: 03/11/17 PRIMARY CARE PROVIDER: Dr. Melissa Birmingham. MY ATTENDING WHILE IN THE HOSPITAL: Ashlie Berumen MD * (dictated by HERBERT Rivers) SYSTEM ENGINEER PROVIDER: Dr. Camila Naik, Neurology. PRIMARY DISCHARGE DIAGNOSIS: Cerebrovascular accident. SECONDARY DISCHARGE DIAGNOSES: 1. Prediabetes. 2. Hyperlipidemia. 3. Hypertension. 4. Deep vein thrombosis. STUDIES DONE WHILE IN THE HOSPITAL: 1. Brain CT from 03/10/17 read as chronic ischemic white matter change. No intracranial mass or hemorrhage. Old lacunar infarct, left basal ganglia. 2. Chest x-ray from 03/10/17 read as no acute findings. Suspected chronic pleural reactive change, left chest. Suggest correlation with prior radiographs and/or followup if none are available. 3. Electrocardiogram from 03/10/17 read as normal sinus rhythm, rate of 69. No ST segment changes. U waves present intermittently, prolonged CT interval. No other abnormalities. Normal axis. 4. Chest CTA from 03/10/17 read as atheromatous disease with approximately 30% left internal carotid artery stenosis by NASCET criteria. No aneurysm, vascular malformation, occlusion or stenosis of the visualized intracranial circulation. Chronic small vessel ischemic changes. Enlarged empty sella, 0.5 cm nodule of the left upper lobe. Recommendations are for followup and management of incidentally detected pulmonary nodule less than 6 mm in size in a patient without a history of malignancy include no followup for a low risk patient or optional followup CT in 12 months for a high risk patient. 5. Brain MRI from 03/10/17, read as there are several small areas of restricted diffusion in the posterior left parietal lobe, suggests a subacute infarct. Findings most consistent with severe chronic small vessel ischemic changes, empty sella. 6. Transthoracic echocardiogram read as mild concentric left ventricular hypertrophy, mild left ventricular wall motion and contractility are within normal limits. Estimated ejection fraction 50%-55% and left ventricular diastolic filling observed, consistent with impaired relaxation. Right ventricular wall thickness mildly increased. Right ventricular chamber size and systolic function within normal limits. Left systolic bull's eye negative. Aortic leaflets mildly thickened with trace aortic regurg with a trace mitral regurgitation, trace tricuspid regurgitation. No prior study to compare. MEDICATIONS AT DISCHARGE: 1. Metformin 500 mg p.o. daily. 2. Lumigan 0.01% one drop to the right eye daily. 3. Lisinopril 2.5 mg p.o. daily. 4. Doxycycline 100 mg p.o. daily x2. 5. Cosopt one drop to the right eye daily. 6. Atorvastatin 40 mg p.o. daily. 7. Clopidogrel 75 mg p.o. daily. Medications discontinued at discharge: 1. Aspirin 325 mg p.o. daily. 2. Pravastatin 40 mg p.o. daily. New medications at discharge: 1. Atorvastatin. 2. Clopidogrel. HOSPITAL COURSE: This is a brief summary to the patient's presentation. For more details, please see the history and physical from Heidy Pickett NP, from 03/10/17. In brief, the patient is a 61-year-old male with a past medical history for the above, who had transient expressive aphasia starting at 11:45 on 03/10/17. The patient was treated for upper respiratory infection with doxycycline. The patient had difficulty talking with his , which resolved when he sat down. The patient had intermittent right hand numbness for a few weeks. The patient had CT scan of the head, chest x-ray, EKG, for the above. The patient in the emergency department had right-sided transient facial drooping. The patient was admitted for TIA versus CVA and was seen in consultation by Dr. Camila Naik of Neurology, who recommended continued workup with a brain MRI, echocardiogram, hemoglobin A1c, lipid profile. The patient had no recurrence of neurological deficits. The patient had no episodes of atrial fibrillation or other abnormal rhythm on telemetry. The patient's echocardiogram came back as above. The patient's brain MRI showed acute to subacute infarct consistent with neurological deficits given that patient had a previous unprovoked DVT and a stroke when he was 20 years old. The patient has had a hypercoagulable workup drawn which is pending. The patient's LDL cholesterol was 89, HDL cholesterol 35, total cholesterol of 35, triglycerides 205. The patient had no other significant laboratory abnormalities. The patient was switched from pravastatin to atorvastatin and from aspirin to clopidogrel due to treatment failure and LDL cholesterol above 70 and the patient was in agreement to be sent home to follow up with primary care provider and with Dr. Naik, to follow up on his hypercoagulable workup and manage his risk factors for repeat stroke. PHYSICAL EXAM ON THE DAY OF DISCHARGE: General: The patient is a 61-year-old male who appears stated age and sitting comfortably in bed, in no acute distress. Vital signs at the time of discharge, temperature 98.2, heart rate 70 , respiratory rate 14, oxygen saturation 96% on room air, blood pressure 132/ 71. HEENT: Head normocephalic, atraumatic. Sclerae anicteric. No tenderness to palpation over the sinuses. No conjunctival injection. Nasal mucosa moist, no discharge. Oral mucosa moist. No pharyngeal erythema or exudates. Neck: Supple, nontender, no lymphadenopathy, no carotid bruits auscultated. Cardiac: Regular rate and rhythm. No clicks, murmurs, gallops or rubs. Pulses are 2+ with bilateral dorsalis pedis, posterior tibialis and radial areas. No edema noted in the bilateral lower extremities. No tenderness to palpation over the calves. Respiratory: Clear to auscultation bilaterally with no wheezes, rales or rhonchi. Abdomen: Soft, nontender and nondistended. Bowel sounds present, normoactive in all 4 quadrants. No hepatosplenomegaly. No abdominal bruits auscultated. Genitourinary: No suprapubic tenderness or CVA tenderness. Skin : Clean, dry, intact, no rash. Neuro: Cranial nerves II through XII intact. Extraocular movements intact. The patient has decreased peripheral vision on the right side, which he states is not a new finding and is caused by glaucoma. The patient has 5/5 strength in bilateral upper and lower extremities distally and proximally. Sensation to light touch preserved in the upper and lower extremities distally and proximally except in the fingertips of the right hand and not corresponding to any direct tone. The patient had a mildly positive Phalen's test with increased numbness in his right hand. Reflexes are 1 + in the bilateral biceps, patellar and Achilles areas. Babinski is downgoing bilaterally. Psychiatric: Pleasant and cooperative. Alert and oriented x3. LABORATORY DATA: White blood cell count 8.7, hemoglobin 14.7, platelet count 289. INR 0.89. APTT 27.6. Sodium 139, potassium 4.6, chloride 105, carbon dioxide 23, anion gap 11. BUN 16, creatinine 0.95. Glucose 109, hemoglobin A1c 6.2. Lactic acid 1.4. Total bilirubin 1.2, AST 19, ALT 17. Troponin I is 0.01. Triglycerides 179, cholesterol 171, LDL cholesterol 95, HDL cholesterol 40.5. Repeat shows triglycerides of 205, cholesterol of 165, LDL cholesterol of 89, HDL cholesterol of 35.1 Benign urine. DISCHARGE PLAN: The patient will be discharged to home on increased statin at 40 mg daily of atorvastatin and clopidogrel 75 mg p.o. daily to manage his secondary risk factors of stroke. The patient had a hypercoagulable workup drawn, which he will follow up with his primary care provider within [address] Naik in 6-8 weeks. The patient should have a surveillance CT in 12 months to document non- progression of his incidentally found pulmonary nodule. Due to patient's smoking history, he is high risk. Initiation of long-term anticoagulation should be postponed until the patient has the result of hypercoagulable workup as the patient had no recurrences of atrial fibrillation while in the hospital approximately 24 hours worth of telemetry monitoring. No mural thrombus was noted on echocardiogram. Longer event recorder monitoring could be considered. The patient should return to the hospital for any new neurological deficits. DIET: The patient should have a heart healthy diet. Caffeine okay. ACTIVITY: The patient should engage in activity as tolerated. The patient will be excused from work until Thursday. TIME SPENT: Approximately 60 minutes was spent on this discharge, 30 of which was spent [id number] with patient obtaining history and physical and discussing treatment plan. HERBERT RIVERS [id number]/[facility] #: [id number] IDALIA
[2017-03-12 15:31] LABS: LAC APTT 28 sec (26 - 36); Lac DRVVT Screen Ratio 0.8 ratio (0.0 - 1.1); Prothrombin Time(LAC) 11.1 sec
[2017-03-12 18:32] LABS: Phospholipid Ab IgG < 9.4 GPL; Phospholipid Ab IgM, S < 9.4 MPL
[2017-03-16 14:32] LABS: Prothrombin 20210 Mutation Negative (Negative)
== END 2017-03-11 17:05 | disposition home or self-care (01) ==
LOC: ED 12:39 → MEDTELE 16:44
PROVIDERS: ADMIT Internal Medicine; ATTEND Internal Medicine
DX: I63.9 Cerebral infarction, unspecified (principal); I67.2 Cerebral atherosclerosis; R47.01 Aphasia; R20.2 Paresthesia of skin; E78.5 Hyperlipidemia, unspecified; I10 Essential (primary) hypertension; F17.210 Nicotine dependence, cigarettes, uncomplicated; I65.22 Occlusion and stenosis of left carotid artery; R91.1 Solitary pulmonary nodule; I51.7 Cardiomegaly; Z86.718 Personal history of other venous thrombosis and embolism; E11.9 Type 2 diabetes mellitus without complications; Z79.84 Long term (current) use of oral hypoglycemic drugs; Z23 Encounter for immunization; J06.9 Acute upper respiratory infection, unspecified; H40.9 Unspecified glaucoma; Z79.899 Other long term (current) drug therapy
CPT/HCPCS: 36415; 70450; 70496; 70498; 70551; 71010; 80053; 80061; 81003; 81240; 81291; 83036; 83605; 84484; 85025; 85220; 85300; 85303; 85306; 85610; 85613; 85730; 86147; 86850; 86900; 86901; 90686; 93005; 93306; 96361; 96365; 96372; 99285; A9270-GY; G0378; J1644; Q9967

== ENCOUNTER 2017-03-12 16:03 | Emergency (ER) | payer BC ==
[2017-03-12 18:57] VITALS: BP 116/83
--- NOTE | 2017-03-13 04:02 | EEG ---
CC: Dr. Melissa Birmingham * ELECTROENCEPHALOGRAPHY: DATE OF STUDY: 03/12/17 LOCATION: The patient is in the ER. ORDERING PHYSICIAN: Camila Naik MD. PRIMARY CARE PHYSICIAN: Dr. Melissa Birmingham. HISTORY: This is a 61-year-old man who came into the ER on the with right hand numbness as well as 2 episodes of difficulty speaking. He was subsequently diagnosed with a left parietal stroke and discharged yesterday. Today, he had the recurrence of 10 seconds of increased numbness in his right arm and inability to speak. EEG is requested to evaluate for epileptiform abnormalities. MEDICATIONS: 1. Doxycycline. 2. Lisinopril. 3. Metformin. 4. Atorvastatin. 5. Plavix. DESCRIPTION: The waking background showed appropriate organization with clearly defined anterior to posterior voltage and frequency gradients. There was a well- defined posterior dominant rhythm of 10 Hz, which was symmetrical and showed normal reactivity. Anteriorly, there was an expected pattern of lower voltage, irregular, mixed faster frequencies. Hyperventilation and photic stimulation were not performed. The patient did not become drowsy during the study. Throughout the recording, there were no epileptiform discharges, focal features , paroxysmal features, or significant interhemispheric asymmetries. IMPRESSION: This is a normal waking EEG. There are no epileptiform abnormalities. [id number]/[facility] #: [id number] [facility]ORS' HOSPITALJalen
--- NOTE | 2017-04-02 20:16 | ED ---
Debra Sellers Edward, scribed for Guerrero Bennett MD on 03/12/17 at 1638 . 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 Pt was not able to express himself. The episode lasted around 15 seconds and resolved. Not aggravated or alleviated by anything. Associated sx: R hand and tongue numbness. Pt had a prior episode of slurred speech 2 days ago; pt was admitted for a TIA. - History of Current Complaint Chief Complaint: EDNeurologicalDeficit Stated Complaint: STROKE-LIKE SYMPTOMS Time Seen by Provider: 03/12/17 16:22 Hx Obtained From: Patient Onset/Duration: Sudden Onset, Started hours ago, Resolved Timing: Intermittent Episodes Lasting: - 1x lasting 15 seconds Current Severity: None Pain Intensity: 0 Character: Numbness/Tingling, Impaired Speech Aggravating: Nothing Alleviating: Nothing Associated Signs and Symptoms: Positive: Impaired Speech, Numbness - tongue and R hand - Additional Pertinent History Primary Care Physician: RUBIO - Allergy/Home Medications Allergies/Adverse Reactions: Allergies Allergy/AdvReac Type Severity Reaction Status Date / Time Latanoprost [From Xalatan] AdvReac Severe Eyes Verified 03/10/17 19:39 Itchy/Swollen/Red/Watery Penicillins AdvReac Mild Itching Verified 03/10/17 19:38 Home Medications: Home Medications Aspirin EC TAB* [Ecotrin EC TAB*] 325 mg PO DAILY 03/12/17 [History Confirmed ] Pravastatin (NF) [Pravachol (NF)] 40 mg PO DAILY 03/12/17 [History Confirmed ] PMH/Surg Hx/FS Hx/Imm Hx Previously Healthy: No Endocrine/Hematology History: Reports: Hx Diabetes - PRE-DM Cardiovascular History: Reports: Hx Deep Vein Thrombosis - WHEN 20, Hx Hypertension, Other Cardiovascular Problems/Disorders - HCL, CAROTID STENOSIS, HLD Denies: Hx Pacemaker/ICD Respiratory History: Reports: Hx Seasonal Allergies Sensory History: Reports: Hx Contacts or Glasses, Hx Glaucoma - right eye Denies: Hx Hearing Aid Opthamlomology History: Reports: Hx Contacts or Glasses, Hx Glaucoma - right eye Neurological History: Reports: Other Neuro Impairments/Disorders - TIA VS. CVA 03/11/17 Psychiatric History: Denies: Hx Panic Disorder - Surgical History Surgery Procedure, Year, and Place: VARICOSE VEIN 2015. GLAUCOMA BILAT EYES Infectious Disease History: No Infectious Disease History: Denies: Traveled Outside the [place] in Last 30 Days - Family History Known Family History: Positive: Cardiac Disease, Other - negative CVA - Social History Alcohol Use: None Hx Substance Use: No Substance Use Type: Reports: None Hx Tobacco Use: Yes Smoking Status (MU): Former Smoker Review of Systems Constitutional: Negative Eyes: Negative ENT: Negative Cardiovascular: Negative Respiratory: Negative Gastrointestinal: Negative Genitourinary: Negative Musculoskeletal: Negative Skin: Negative Positive: Numbness - R hand, tongue, Slurred Speech Psychological: Normal All Other Systems Reviewed And Are Negative: Yes Physical Exam - Summary Physical Exam Summary: Appearance: Well-appearing, Well-nourished Skin: Warm, Dry, No rash Eyes: Normal, PERRL, EOMI, sclera anicteric ENT: Normal Neck: Supple, nontender Respiratory: Clear to auscultation Cardiovascular: S1, S2, no murmur, no rub, no gallop Abdomen: Soft, nontender, no organomegaly Bowel sounds: Present Musculoskeletal: Normal, Strength/ROM Intact, no edema, pulses symmetrical Neurological: Normal, A&Ox3, cranial nerves II-XII WNL, follows commands, gait not tested, sensation intact to pin and light touch Psychiatric: affect normal, behavior appropriate, dressed appropriately, judgment intact Triage Information Reviewed: Yes Vital Signs On Initial Exam: Initial Vitals Temp Pulse Resp BP Pulse Ox 97.2 F 69 20 155/90 99 03/12/17 16:05 03/12/17 16:05 03/12/17 16:05 03/12/17 16:05 03/12/17 16:05 Vital Signs Reviewed: Yes Diagnostics - Vital Signs Vital Signs Temp Pulse Resp BP Pulse Ox 03/12/17 16:05 97.2 F 69 20 155/90 99 - Laboratory Lab Statement: Any lab studies that have been ordered have been reviewed, and results considered in the medical decision making process. NIH Scale - NIH Scale Level of Consciousness: Alert/Keenly Responsive Ask Patient the Month and His/Her Age: Both Correct Ask Pt to Open/Close Eyes and Supervising Producer/Release Non-Paretic Hand: Both Correctly Best Gaze (Only Horizontal Eye Movement): Normal Visual Field Testing: No Visual Loss Facial Paresis-Pt to Smile & Close Eyes or Grimace Symmetry: Normal/Symmetrical Motor Function - Right Arm: No Drift-Holds 10 Seconds Motor Function - Left Arm: No Drift-Holds 10 Seconds Motor Function - Right Leg: No Drift-Holds 10 Seconds Motor Function - Left Leg: No Drift-Holds 10 Seconds Limb Ataxia-Must be out of Proportion to Weakness Present: Absent Sensory (Use Pinprick to Test Arms/Legs/Trunk/Face): Normal Best Language (Describe Picture, Name Items): No Aphasia Dysarthria (Read Several Words): Normal Extinction and Inattention: No Abnormality Total Score: 0 Course/Dx - Course Assessment/Plan: CONSULTED MD CAROL WILL SEE IN ED. EEG WILL BE DONE TO R/O SEIZURE. EEG GOOD. CONSULTED CAROL AGAIN AFTER EEG. PT WILL BE D/C HOME. PT UNDERSTANDS AND AGREES. - Diagnoses Provider Diagnoses: transient neurologic dysfunction, SEIZURE VS. TIA - Physician Notifications Discussed Care Of Patient With: Camila Naik Time Discussed With Above Provider: 16:48 Instructed by Provider To: Will See In ED Discharge - Discharge Plan Condition: Good Disposition: HOME Patient Education Materials: New-Onset Seizure in Adults (ED) Referrals: Melissa Birmingham MD [Primary Care Provider] - The documentation as recorded by the Debra dave Edward accurately reflects the service I personally performed and the decisions made by me, Guerrero Bennett MD.
== END 2017-03-12 19:01 | disposition home or self-care (01) ==
LOC: ED 16:03
DX: R29.818 Other symptoms and signs involving the nervous system (principal); Z87.891 Personal history of nicotine dependence; R47.81 Slurred speech; Z86.73 Personal history of transient ischemic attack (TIA), and cerebral infarction without residual deficits
CPT/HCPCS: 95816; 99282

== ENCOUNTER 2018-05-19 09:43 | Day surgery (SDC) | payer BC ==
[~2018-05-19 09:43] MED LIST: Acetaminophen TAB* 325 MG PO PRN; Buffered Lidocaine 1% SYRIN* 1 ML/SYRINGE INTRADERM ONE
[2018-05-19] MEDS ORDERED: Midazolam* 1 MG/ML 2 ML VIAL (2 MG) ONE ×2 (12:42→12:45)
[2018-05-19 13:14] VITALS: BP 128/80
[2018-05-19] MEDS ORDERED: Ketorolac 0.5% OPHTH (NF) 0.5 % 5 ML BTL ONE (13:51)
[2018-05-19] MEDS ORDERED: Povidone Iodine 5% OPTH* 30 ML BTL ONE (13:51)
[2018-05-19] MEDS ORDERED: Lidocaine 2% EPI 1:200000 MPF*10-20 ML VIAL ONE (13:51)
[2018-05-19] MEDS ORDERED: Cyclopentolate 1% OPTH.SOL* 2 ML BTL ONE (13:51)
[2018-05-19] MEDS ORDERED: Lidocaine 1%* 5 ML VIAL ONE (13:51)
[2018-05-19] MEDS ORDERED: Neomycin/Polymy/Dex OPTH.SUSP* MAXITROL 0.1% 5 ML ONE (13:51)
[2018-05-19] MEDS ORDERED: Phenylephrine 2.5% OPTH.SOL* 2 ML BTL ONE (13:51)
[2018-05-19] MEDS ORDERED: acetaZOLAMIDE TAB* 250 MG ONE (13:51)
[2018-05-19] MEDS ORDERED: Proparacaine 0.5% OPHTH.SOL* 15 ML BTL ONE (13:52)
--- NOTE | 2018-05-19 13:58 | OP ---
OPERATIVE NOTE: DATE OF OPERATION: 05/19/18 DATE OF : 59 SURGEON: Rolly Garcia M.D. PREOPERATIVE DIAGNOSIS: Cataract, right. POSTOPERATIVE DIAGNOSIS: Cataract, right. OPERATIVE PROCEDURE: Extracapsular cataract extraction with intraocular lens implant, right eye. PROCEDURE: The patient was brought to the operating room after being given 1/2% Alcaine with epineph rine drops in the preoperative area. The eye was prepped and draped in the usual sterile fashion. S terile drape and eyelid speculum were placed. Again, topical 1/2% Alcaine with epinephrine was given . A paracentesis incision was made at the 9 o'clock position with the No.75 blade. Clear cornea inc ision 2.2 x 2.2-mm was created at the 12 o'clock position starting at the anterior limbus using the 2 .2-mm keratome. The anterior chamber was irrigated with 0.4 mL of 1% non-preservative intracameral l idocaine and filled with DisCoVisc. A capsulorrhexis was completed using the cystotome and the Utrat a forceps. Hydrodissection was performed with balanced salt solution. The lens nucleus was removed w ith the Phacoemulsification handpiece without incident. Cortex was removed with the irrigation-aspir ation handpiece. The capsular bag was re-inflated using DisCoVisc and an [id number] implant was inser ruthie with the shooter. The irrigation-aspiration handpiece was used to remove all residual DisCoVisc. The eye was refilled with balanced salt solution and the wound checked and found to be watertight. Topical Maxitrol drops were given. [id number]/[facility] #: [id number]
== END 2018-05-19 13:25 | disposition home or self-care (01) ==
LOC: OREAST 09:43
PROVIDERS: ATTEND Specialist
DX: H25.811 Combined forms of age-related cataract, right eye (principal); H40.1113 Primary open-angle glaucoma, right eye, severe stage; E11.9 Type 2 diabetes mellitus without complications; Z79.84 Long term (current) use of oral hypoglycemic drugs; Z87.891 Personal history of nicotine dependence; I10 Essential (primary) hypertension; Z86.73 Personal history of transient ischemic attack (TIA), and cerebral infarction without residual deficits; Z79.01 Long term (current) use of anticoagulants
CPT/HCPCS: A9270-GY; J2250; V2632

== ENCOUNTER 2019-01-17 15:10 | Observation (INO) | payer BC ==
--- OUTSIDE RECORDS SUMMARY | 2019-01-17 15:26 | XMS REPORT | Continuity of Care Document ---
:1955 External Reference #:[id number] Author Name Rolly Garcia M.D. Address [address] [place] [id number] Care Team Providers Name Role Phone Daniel Whipple M.D. - Neurology Care Team Information Banker Mason Fortino [employer]PRESENTATIVE - Nurse Care Team Information Banker Mason [phone] Practitioner Problems Active Problems Provider Date Type 2 diabetes mellitus Onset: 05/22/2014 Pure hypercholesterolemia Onset: 05/22/2014 Seasonal allergy Onset: Gastroesophageal reflux disease Onset: Essential hypertension Onset: Primary open angle glaucoma Rolly Garcia M.D. Onset: 08/25/2014 Nuclear senile cataract Rolly Garcia M.D. Onset: 08/25/2014 Severe / Advanced / End Stage Glaucoma Rolly Garcia M.D. Onset: 2014 Deep venous thrombosis of lower extremity Onset: Phlebitis of deep veins of lower extremity Onset: Tear film insufficiency Maribel Stanton O.D. Onset: 04/04/2015 Combined form of senile cataract Rolly Garcia M.D. Onset: 04/24/2015 Primary open angle glaucoma of right eye Rolly Garcia M.D. Onset: 2016 Primary open angle glaucoma of left eye Rolly Garcia M.D. Onset: 2016 Social History Type Date Description Comments Sex Unknown ETOH Use Denies alcohol use Recreational Drug Use Denies Drug Use Tobacco Use Start: Unknown End: Unknown Patient is a former smoker Smoking Status Reviewed: 01/11/19 Patient is a former smoker Allergies, Adverse Reactions, Alerts Active Allergies Reaction Severity Comments Date Penicillin unknown 05/22/2014 Medications Active Medications SIG Qnty Indications Ordering Date Provider Lumigan one drop right eye 22.5ml Rolly Garcia, 05/07/2016 0.01% every night M.D. Solution Dorzolamide 1 drop right eye 10ml Rolly Garcia, 05/21/2014 HCL/Timolol Maleate twice a day M.D. 22.3-6.8mg/ml Solution Claritin-D 12 Hour 1 by mouth every Unknown day 5-120mg Tablets ER 12HR Vitamin C Unknown 500 Capsules Multivital-M 1 by mouth every Unknown Tablets day Metformin HCL 1 by mouth every Unknown 500mg day Tablets Lipitor 1 by mouth every Unknown 40mg Tablets day for high cholesterol Plavix 1 by mouth every Unknown 75mg Tablets day @hs Ranitidine HCL Unknown 150mg Capsules Medications Administered in Office Medication SIG Qnty Indications Ordering Provider Date Unclassified Biologics, I.E. Rosio Yuan MD 05/19/2011 Avastin Injection Unclassified Biologics, I.E. Rosio Yuan MD 04/23/2011 Avastin Injection Immunizations Description No Information Available Vital Signs Description No Information Available Results Description No Information Available Procedures Date Code Description Status 09/07/2018 36217 Visual Field Exam Extended Completed 09/07/2018 14605 Est Patient Intermediate Exam Completed Medical Devices Description No Information Available Encounters Description No Information Available Assessments Date Code Description Provider 01/11/2019 H40.1113 Primary open-angle glaucoma, right eye, Rolly Garcia M.D. severe stage 01/11/2019 H40.1122 Primary open-angle glaucoma, left eye, Rolly Gacria M.D. moderate stage 01/11/2019 Z96.1 Presence of intraocular lens Rolly Garcia M.D. 01/11/2019 E11.9 Type 2 diabetes mellitus without Rolly Garcia M.D. complications 09/07/2018 H40.1113 Primary open-angle glaucoma, right eye, Rolly Garcia M.D. severe stage 09/07/2018 H40.1122 Primary open-angle glaucoma, left eye, Rolly Garcia M.D. moderate stage 09/07/2018 Z96.1 Presence of intraocular lens Rolly Garcia M.D. 09/07/2018 E11.9 Type 2 diabetes mellitus without Rolly Garcia M.D. complications 09/07/2018 H25.812 Combined forms of age-related cataract, Rolly Garcia M.D. left eye Plan of Treatment 01/11/2019 - Rolly Garcia M.D.H40.1113 Primary open-angle glaucoma, right eye, severe stageComments:Smoking can increase the risk of developing or worsening any eye related disease, as well as affect your overall health. If you are a smoker, we strongly recommend that you quit.If you are not a smoker, we strongly recommend that you do not start. Your glaucoma is borderline at this time in your right eye. This could mean that your eye pressure is higher than your desired target, but not high enough to change your treatment; or your eye pressure is in your target range, but there are questionablechanges on your Glaucoma testing.Follow up:6 WKS IOP Check Visual Field, Central 10 OD Visual Field, 30-2 OS At your next visit, we are not planning to dilate your eyes. However, if you have any changes in your vision or new symptoms, there are certain situations that require us to dilate your eyes. If Dr. Garcia requests any additional testing, that may require extra time. If you have any questions before your next appointment, please call our office at .H40.1122 Primary open-angle glaucoma, left eye, moderate stageComments:Your glaucoma is stable at this time in your left eye.Your eye pressure is within an acceptable range, and your testing does not show any further deterioration at this time. Please continue your treatment as directed and keep follow up appointments.Z96.1 Presence of intraocular lensComments:The artificial lens implants in both eyes appear to be stable at this time.E11.9 Type 2 diabetes mellitus without complicationsComments:You have diabetes. I do not detect any changes in both of your retinas from diabetes at this time. Proper control of your diabetes is important for the health of your eyes. Changes in your eyes from diabetes can happen without symptoms, so it is important that you have your eyes examined. Dr. Garcia has sent a report to your primary care doctor, letting them know there is no damage from the Diabetes in your eyes. Functional Status Description No Information Available Mental Status Description No Information Available Referrals Description No Information Available
[2019-01-17] MEDS ORDERED: Albuterol/Ipratropium NEB.SOL* Albuterol 2.5 MG/Ipratropium 0.5 MG 3 ML INH ONE (15:53)
[2019-01-17 15:59] LABS: ABS Basophils 0.1 10^3/ul (0-0.2); ABS Eosinophils 0.4 10^3/ul (0-0.6); ABS Lymphocytes 1.3 10^3/ul (1.0-4.8); ABS Monocytes 0.8 10^3/ul (0-0.8); ABS Neutrophils 5.8 10^3/ul (1.5-7.7); Eosinophil % 5.1 %; Hematocrit 42 % (42-52); Hemoglobin 14.3 g/dL (14.0-18.0); Lymphocyte % 15.3 %; Mean Corpuscular HGB Conc 34 g/dL (31-36); Mean Corpuscular Hemoglobin 32 pg (27-31); Mean Corpuscular Volume 94 fL (80-94); Mean Platelet Volume 7.6 fL (7.4-10.4); Nucleated Red Blood Cells % 0.1; Platelet Count 247 10^3/uL (150-450); Red Blood Count 4.45 10^6 /uL (4.18-5.48); Red Cell Distribution Width 13 % (10-15); White Blood Count 8.4 10^3/uL (3.5-10.8)
--- NOTE | 2019-01-17 16:00 | ED ---
Shortness of Breath - HPI Summary HPI Summary: 63 year old male presents with shortness of breath today. States it only as when he moves. Does have a history of childhood asthma. States he does have some wheezing when this occurs. Has had left calf pain for the past couple weeks. Does have a history of DVTs. No recent travel. Denies any chest pain. No cough. No fevers. He admits to sinus congestion. No abdominal pain. No nausea vomiting. Has never had this before. Does have a history of bad seasonal allergies. - History of Current Complaint Chief Complaint: EDUpperRespComplaint Time Seen by Provider: 01/17/19 15:35 - Allergy/Home Medications Allergies/Adverse Reactions: Allergies Allergy/AdvReac Type Severity Reaction Status Date / Time latanoprost [From Xalatan] Allergy itchy eyes Verified 01/17/19 15:31 Penicillins Allergy Itching Verified 01/17/19 15:31 Home Medications: Home Medications Ascorbic Acid TAB* [Vitamin C TAB*] 500 mg PO DAILY 01/17/19 [History Confirmed 01/17/19] Atorvastatin* [Lipitor 40 MG*] 40 mg PO DAILY 01/17/19 [History Confirmed ] Lisinopril TAB* [Prinivil TAB*] 5 mg PO DAILY 01/17/19 [History Confirmed ] Loratadine/Pseudoephedrine [Claritin-D 12 Hour] 1 tab PO BID PRN 01/17/19 [ History Confirmed 01/17/19] Multivitamins/Minerals TAB* [Theragran/minerals TAB*] 1 tab PO DAILY 01/17/19 [ History Confirmed 01/17/19] Ranitidine TAB (NF) [Zantac TAB (NF)] 150 mg PO BID PRN 01/17/19 [History Confirmed 01/17/19] metFORMIN* [Glucophage 500 MG TAB *] 500 mg PO DAILY 01/17/19 [History Confirmed 01/17/19] PMH/Surg Hx/FS Hx/Imm Hx Endocrine/Hematology History: Reports: Hx Diabetes - PRE-DM Denies: Hx Anticoagulant Therapy Cardiovascular History: Reports: Hx Deep Vein Thrombosis - WHEN 20, Hx Hypertension, Other Cardiovascular Problems/Disorders - HCL, CAROTID STENOSIS, HLD Denies: Hx Pacemaker/ICD Respiratory History: Reports: Hx Asthma - childhood, Hx Seasonal Allergies Denies: Hx Chronic Obstructive Pulmonary Disease (COPD), Other Respiratory Problems/Disorders GI History: Denies: Other GI Disorders Sensory History: Reports: Hx Cataracts - kacy, Hx Contacts or Glasses, Hx Glaucoma - right eye Denies: Hx Hearing Aid Opthamlomology History: Reports: Hx Cataracts - kacy, Hx Contacts or Glasses, Hx Glaucoma - right eye Neurological History: Reports: Other Neuro Impairments/Disorders - TIA VS. CVA 03/11/17 Psychiatric History: Denies: Hx Panic Disorder - Surgical History Surgery Procedure, Year, and Place: VARICOSE VEIN 2015. GLAUCOMA BILAT EYES Hx Anesthesia Reactions: No Infectious Disease History: No Infectious Disease History: Denies: Traveled Outside the [place] in Last 30 Days - Family History Known Family History: Positive: Cardiac Disease, Other - negative CVA - Social History Alcohol Use: None Hx Substance Use: No Substance Use Type: Reports: None Hx Tobacco Use: Yes Smoking Status (MU): Former Smoker Amount Used/How Often: pack a day for since age 22 Review of Systems Negative: Fever Negative: Chest Pain Positive: Shortness Of Breath. Negative: Cough All Other Systems Reviewed And Are Negative: Yes Physical Exam Triage Information Reviewed: Yes Vital Signs On Initial Exam: Initial Vitals Temp Pulse Resp BP Pulse Ox 97.8 F 95 20 170/99 94 01/17/19 15:18 01/17/19 15:18 01/17/19 15:18 01/17/19 15:18 01/17/19 15:18 Vital Signs Reviewed: Yes Appearance: Positive: Well-Appearing Skin: Positive: Warm, Dry Head/Face: Positive: Normal Head/Face Inspection Eyes: Positive: Normal, EOMI, ROBERT, Conjunctiva Clear ENT: Positive: Normal ENT inspection, Pharynx normal, TMs normal Respiratory/Lung Sounds: Positive: Breath Sounds Present, Decreased Breath Sounds Cardiovascular: Positive: Normal, RRR Abdomen Description: Positive: Nontender, Soft Bowel Sounds: Positive: Present Musculoskeletal: Positive: Normal Neurological: Positive: Normal Psychiatric: Positive: Normal Diagnostics - Vital Signs Vital Signs Temp Pulse Resp BP Pulse Ox 01/17/19 15:18 97.8 F 95 20 170/99 94 - Laboratory Result Diagrams: 01/17/19 15:48 01/17/19 15:48 Lab Statement: Any lab studies that have been ordered have been reviewed, and results considered in the medical decision making process. - Radiology chest Radiology Interpretation Completed By: Radiologist Summary of Radiographic Findings: IMPRESSION: PATCHY AIRSPACE DISEASE OF THE LEFT LUNG SUGGESTIVE OF EARLY CONSOLIDATION RECOMMEND FOLLOW-UP UNTIL RESOLUTION TO EXCLUDE UNDERLYING PULMONARY PARENCHYMAL PATHOLOGY. - EKG No standard instances Cardiac Rate: NL EKG Rhythm: Sinus Rhythm EKG Comparison: No Significant Change Summary of EKG Findings: sinus rhythm Re-Evaluation - Re-Evaluation First Eval Re-Evaluation Time: 16:52 Comment: discussed results Course/Dx - Course Course Of Treatment: 63 year old male presents with shortness of breath today. States it only as when he moves. Does have a history of childhood asthma. States he does have some wheezing when this occurs. Has had left calf pain for the past couple weeks. Does have a history of DVTs. No recent travel. Denies any chest pain. No cough. No fevers. He admits to sinus congestion. No abdominal pain. No nausea vomiting. Has never had this before. Does have a history of bad seasonal allergies. On exam decreased breath sounds noted. Tenderness of left calf. EKG shows sinus rhythm. wbc normal. chest xray shows early conslidation. d-dimer elevated so will get CTA. troponin .03. bnp normal. u/s shows dvt in popliteal. CTA shows PE in right mainstream artery and into left lower lobe pulmonary artery. patient will be start on heparin. dr elkins agrees to admit. - Diagnoses Differential Diagnosis/HQI/PQRI: Positive: CHF, Pneumonia, Pulmonary Embolism, Unstable Angina Provider Diagnoses: Left leg DVT, Pulmonary embolism Discharge ED - Sign-Out/Discharge Documenting (check all that apply): Patient Departure - Discharge Plan Condition: Stable Disposition: ADMITTED TO [facility] - Billing Disposition and Condition Condition: STABLE Disposition: Admitted to [facility]
[2019-01-17 16:18] LABS: Troponin I 0.03 ng/mL (<0.04)
[2019-01-17 16:40] LABS: Albumin 4.2 g/dL (3.2-5.2); Albumin/Globulin Ratio 1.4 (1-3); BUN/Creatinine Ratio 17.8 (8-20); C Reactive Protein 9.83 mg/L (<8.01); EGFR African American 103.8 (>60); EGFR Non-African American 85.8 (>60); Globulin 2.9 g/dL (2-4); Potassium 4.2 mmol/L (3.5-5.0); Total Bilirubin 0.7 mg/dL (0.2-1.0); Total Protein 7.1 g/dL (6.4-8.9)
[2019-01-17] MEDS ORDERED: Iodixanol* (CONTRAST) 320 MG/ML 100 ML SDV IV ONE (16:43)
[2019-01-17] MEDS ORDERED: Heparin DRIP 25,000 UNITS(*) 25,000 UNITS/500 ML BAG IV SCH (18:15)
[2019-01-17] MEDS ORDERED: Rivaroxaban TAB(*) 15 MG PO ONE (18:19)
[2019-01-17] MEDS ORDERED: Acetaminophen TAB* 325 MG PO PRN (18:27)
--- NOTE | 2019-01-17 20:59 | HP ---
CC: Melissa Birmingham MD * HISTORY AND PHYSICAL: DATE OF ADMISSION: 01/17/19 PRIMARY CARE PROVIDER: Melissa Birmingham MD CHIEF COMPLAINT: Shortness of breath. HISTORY OF PRESENT ILLNESS: Mr. Mcduffie is a 63-year-old male with history of venous thromboembolus when he was 20 years old and another DVT discovered by Dr. Mcnally approximately 5 years ago, who presented to the hospital complaining of symptoms of shortness of breath today in the morning. The patient stated that when he was taking shower, all of a sudden he noted that he was trying to a take a deep breath and he could not "catch his breath." He denied any chest pain. Then, he noted that a tender point on his left calf on palpation. He came into the ED for evaluation. At that point, his CT angiogram of the chest showed bilateral pulmonary emboli. He is going to be placed on overnight observation. PAST MEDICAL HISTORY: 1. History of impaired glucose tolerance. 2. Hypertension. 3. Hyperlipidemia. 4. History of DVT at the age of 20 and approximately 5 years ago. 5. History of CVA in 2017. No clear-cut source at that point. 6. History of varicose vein surgery. 7. History of bilateral eye surgery for glaucoma. CURRENT MEDICATIONS: 1. Multivitamin 1 tablet daily. 2. Vitamin C 500 mg daily. 3. Claritin-D 1 tablet p.r.n. 4. Ranitidine 150 mg b.i.d. p.r.n. 5. Metformin 500 mg daily. 6. Lisinopril 5 mg daily. 7. Lipitor 40 mg daily. 8. Plavix 75 mg q.a.m. ALLERGIES: LATANOPROST and PENICILLIN. FAMILY HISTORY: Positive for father with history of heart disease. His mother had a history of ovarian cancer. SOCIAL HISTORY: The patient has history of smoking intermittently until the year of 2017, half a pack per day. He denies any alcohol or drug use. His , Christiana, is his surrogate. 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 REVIEW OF SYSTEMS: Please see history of present illness. All the remaining 12 systems were reviewed with the patient and were otherwise negative. PHYSICAL EXAMINATION GENERAL: The patient is a very pleasant 63-year-old male, who is in no acute distress. Alert and oriented x3. VITAL SIGNS: Blood pressure of 147/92, heart rate of 79 and regular, respiratory rate 15, oxygen saturation 97% on room air, temperature of 97.8. HEENT: Head: Atraumatic and normocephalic. Eyes: Pupils are equal, round, and reactive to light and accommodation. Oropharynx clear. Mucosa moist. NECK: Supple. No JVD. No bruits bilaterally. RESPIRATORY: Clear to auscultation bilaterally. CARDIOVASCULAR: Regular rate and rhythm. No murmur. ABDOMEN: Soft and nontender. Bowel sounds are present in all 4 quadrants. EXTREMITIES: There is no edema. Pulses are +2 bilaterally. No clubbing or cyanosis. On palpation of the left scalp, he has a point tenderness and positive Homans' sign. PSYCHIATRIC EVALUATION: Oriented x3 with no evidence of anxiety or depression. DIAGNOSTIC STUDIES/LAB DATA: Laboratory data and studies performed during the ED stay included: EKG showed sinus tachycardia with a heart rate of 90 beats per minute with no ST changes. White blood cell count of 8.4, hemoglobin of 14.3, hematocrit of 42, and platelets of 247. Sodium was 138, potassium 4.2, chloride 111, carbon dioxide 19, BUN 16, creatinine 0.9. Liver function test unremarkable. C-reactive protein of 9.8. Brain natriuretic peptide was 25. Lactic acid of 1.6. CT angiogram of the chest, impression: "Multilevel pulmonary emboli coalescing and extending into the right mainstem pulmonary artery. There are multiple segments of pulmonary emboli in the left lower lobe extending into the left lower lobe pulmonary artery. Again, significant calcification of the left lung similar to appearance on 07/16/18 CT of the chest. ASSESSMENT AND PLAN: 1. Acute pulmonary embolism. The patient is going to be placed on Xarelto and be placed on telemetry monitoring bed on observation. A transthoracic echocardiogram is going to be obtained in the morning. At this point, this patient who had a history of cerebrovascular accident 2 years ago as well as DVT several years ago, a possibility of hypercoagulable predisposition/genetic disorder is possible. The patient likely will need a hematology evaluation as outpatient for hypercoagulable workup. For the time being, he is going to be placed on Xarelto which he was treated with already 3 years ago for DVT at that point. His Plavix is going to be discontinued due to being on full anticoagulation. 2. For history of diabetes, metformin is going to be held due to the contrast that he received today. He is going to be placed on diabetic diet. I do not believe that that was history of impaired glucose tolerance. The patient needs fingersticks at that point. 3. For history of dyslipidemia, his statin is going to be continued. 4. For DVT prophylaxis, as above, the patient is going to be full anticoagulated. 5. The patient's code status is full. His surrogate is his . TIME SPENT: Approximately 55 minutes was spent on admission of this patient, more than half the time was spent [id number] with the patient during the interview and physical exam. [id number]/[facility] #: [id number] IDALIA
[2019-01-17] MEDS: Famotidine TAB* 20 MG PO SCH (21:10)
[2019-01-18] MEDS ORDERED: Rivaroxaban TAB(*) 15 MG PO SCH (06:00)
[2019-01-18 07:11] LABS: ABS Basophils 0.1 10^3/ul (0-0.2); ABS Eosinophils 0.5 10^3/ul (0-0.6); ABS Lymphocytes 1.7 10^3/ul (1.0-4.8); ABS Neutrophils 6.3 10^3/ul (1.5-7.7); Eosinophil % 5.5 %; Hematocrit 43 % (42-52); Hemoglobin 14.4 g/dL (14.0-18.0); Mean Corpuscular HGB Conc 34 g/dL (31-36); Mean Corpuscular Hemoglobin 32 pg (27-31); Mean Corpuscular Volume 95 fL (80-94); Mean Platelet Volume 7.6 fL (7.4-10.4); Nucleated Red Blood Cells % 0.1; Platelet Count 234 10^3/uL (150-450); Red Blood Count 4.49 10^6 /uL (4.18-5.48); Red Cell Distribution Width 13 % (10-15); White Blood Count 9.7 10^3/uL (3.5-10.8)
[2019-01-18 07:29] LABS: BUN/Creatinine Ratio 15.4 (8-20); Calcium 8.9 mg/dL (8.6-10.3); EGFR African American 102.5 (>60); EGFR Non-African American 84.7 (>60); Potassium 3.9 mmol/L (3.5-5.0)
[2019-01-18] MEDS ORDERED: Perflutren Lipid Microsphere* 3 ML VIAL ONE (08:21)
[2019-01-18] MEDS: Famotidine TAB* 20 MG PO SCH (08:43)
[2019-01-18] MEDS ORDERED: Ascorbic Acid TAB* 500 MG PO SCH (09:00)
[2019-01-18] MEDS ORDERED: Atorvastatin* 40 MG TAB PO SCH (09:00)
[2019-01-18] MEDS ORDERED: PTO: Dorzolamide/Timolol OPTH (NF) 10 ML BOT RIGHT EYE SCH (10:30)
--- NOTE | 2019-01-18 11:21 | ECHO ---
*[facility]* [place] [address] Fax #: [phone] Transthoracic Echocardiogram Patient: Tommie Mcduffie : 1955 Study Date: 01/18/2019 Age: 63 Gender: M HR: 83 bpm Height: 71 in /180.3 cm BSA: 2.09 m^2 Weight: 195.6 lb /88.9 kg BMI: 27.3 kg/m^2 *Engineering Surveyor: * Jeri Lopez RDCS RN *Referring Physician: * Charlotte Galarza *Reading Physician: * Dominic Yarbrough MD Indications: Pulmonary embolism. History: Cerebrovascular accident. DVT. Risk factors: Former tobacco use. Hypertension. Diabetes mellitus. Dyslipidemia. Conclusions Summary: - Left ventricle: Systolic function is hyperdynamic. The estimated ejection fraction is 65-70%. Wall motion is normal; there are no regional wall motion abnormalities. - Right ventricle: The cavity size is normal. Wall thickness is mildly to moderately increased. Systolic function is normal. - Mitral valve: There is trace regurgitation. - Aortic valve: There is no evidence of stenosis. There is trace regurgitation. - Tricuspid valve: There is mild regurgitation. - Ascending aorta: The ascending aorta is not dilated. - Pulmonary arteries: Systolic pressure is severely increased, estimated to be 61 mm Hg. - Compared to study of 03/11/17, the left ventricle function and valve structures are the same. The elevated pulmonary artery systolic pressure is new. Study data: Transthoracic echocardiogram. Procedure: Transthoracic echocardiography was performed. Image quality was adequate. The study was technically limited due to smoking history. Intravenous Definity 2 ml was administered to enhance imaging. Complete 2D, spectral Doppler, and color flow Doppler. Location: Bedside. Patient status: Observation. Patient room number: 444-02. Rhythm: Normal sinus rhythm. Findings Left ventricle: The cavity size is mildly reduced. Wall thickness is mildly increased. Systolic function is hyperdynamic. The estimated ejection fraction is 65-70%. Wall motion is normal; there are no regional wall motion abnormalities. Doppler parameters are consistent with abnormal left ventricular relaxation (grade 1 diastolic dysfunction). Right ventricle: The cavity size is normal. Wall thickness is mildly to moderately increased. Systolic function is normal. Systolic pressure is severely increased. Ventricular septum: The outflow septum has a sigmoid appearance. Left atrium: The atrium is normal in size. Right atrium: The atrium is normal in size. Mitral valve: The leaflets are mildly thickened. There is no evidence of stenosis. There is trace regurgitation. Aortic valve: Not well visualized. The leaflets are mildly thickened. There is no evidence of stenosis. There is trace regurgitation. Tricuspid valve: The valve is structurally normal. There is no evidence of stenosis. There is mild regurgitation. Pulmonic valve: Not well visualized. There is no evidence of stenosis. There is trace regurgitation. Aorta: Aortic root: The aortic root is not dilated. Ascending aorta: The ascending aorta is not dilated. Aortic arch: The aortic arch is not dilated. Pericardium: A prominent pericardial fat pad is present. Pulmonary arteries: The main pulmonary artery is normal-sized. Systolic pressure is severely increased, estimated to be 61 mm Hg. Systemic veins: Inferior vena cava: The vessel is normal in size. There is (>= 50%) respiratory change in the IVC dimension. Measurements Left ventricle Value Ref Aortic valve Value Ref DANIEL, LAX (L) 3.7 cm 4.2 - 5.8 Jeremías diam, ED 2.0 cm ---- ESD, LAX 2.7 cm 2.5 - 4.0 Peak v, S 1.16 m/sec ---- FS, LAX 26 % 25 - 43 VTI, S 22.5 cm ---- PW, ED (H) 1.2 cm 0.6 - 1.0 Mean grad, S 3.0 mm Hg ---- IVS/PW, ED 0.96 Peak grad, S 5.0 mm Hg ---- E', lat jeremías, TDI (L) 7.7 cm/sec >=10.0 LVOT/AV, VTI ratio 0.85 --- - E/e', lat jeremías, 8 CHANTEL, VTI 2.67 cm^2 ---- TDI CHANTEL, Vmax 2.50 cm^2 ---- E', med jeremías, TDI 10.1 cm/sec >=7.0 E/e', med jeremías, 6 Mitral valve Value Ref TDI Peak E 0.59 m/sec ---- E', avg, TDI 8.9 cm/sec Peak A 0.74 m/sec ---- E/e', avg, TDI 7 <=14 Decel time 239 ms --- - Peak E/A ratio 0.8 ---- LVOT Value Ref Diam, S 2.00 cm Pulmonic valve Value Ref Area 3.1 cm^2 Peak v, S 0.76 m/sec ---- Peak aan, S 0.92 m/sec Peak grad, S 2.0 mm Hg ---- VTI, S 19.1 cm Mean grad, S 2 mm Hg Tricuspid valve Value Ref SV 60 ml Peak RV-RA grad, S 58 mm Hg ---- SV/bsa 29 ml/m^2 Max TR ana 3.8 m/sec ---- Ventricular septum Value Ref Aortic root Value Ref IVS, ED (H) 1.1 cm 0.6 - 1.0 Root diam 2.9 cm <4.2 Right ventricle Value Ref Ascending aorta Value Ref DANIEL, LAX 2.7 cm AAo AP diam, S 3.0 cm ---- DANIEL minor ax, A4C 3.5 cm 1.9 - 3.5 mid Aortic arch Value Ref Pressure, S 61 mm Hg Arch diam 3.3 cm ---- Left atrium Value Ref Decending aorta Value Ref AP dim, ES (L) 2.90 cm 3.00 - Christian peak ana 0.45 m/sec ---- 4.00 ML dim, A4C 3.5 cm Pulmonary artery Value Ref SI dim, A4C 3.8 cm Pressure, S 59.0 mm Hg ---- Vol/bsa, ES, 1-p (L) 11 ml/m^2 12 - 37 A4C Inferior vena cava Value Ref Vol/bsa, ES, A/L (L) 15 ml/m^2 16 - 34 Diam 1.4 cm ---- Right atrium Value Ref ML dim, ES, A4C 3.4 cm 2.6 - 4.4 SI dim, ES, A4C 3.7 cm 3.4 - 5.3 Estimated RAP 3 mm Hg Legend: (L) and (H) jean pierre values outside specified reference range. Prepared and electronically signed by Dominic Yarbrough MD 01/18/2019 11:20
[2019-01-18 12:56] VITALS: BP 147/83
[2019-01-18] MEDS ORDERED: PTO: Bimatoprost 0.01% OPHTH (NF) 2.5 ML BTL RIGHT EYE SCH (21:00)
--- NOTE | 2019-01-18 21:08 | DS ---
CC: Dr. Melissa Birmingham* DISCHARGE SUMMARY: DATE OF ADMISSION: 01/17/19 DATE OF DISCHARGE: 01/18/19 PRIMARY CARE PROVIDER: Melissa Birmingham MD. ATTENDING PHYSICIAN: Aden Torres MD * (dictated by HERBERT Hurley). PRIMARY DIAGNOSES: 1. Bilateral pulmonary embolism. 2. Left lower extremity DVT. SECONDARY DIAGNOSES: 1. Hypertension. 2. Hyperlipidemia. 3. History of DVT, age 20, age 58. 4. History of cerebrovascular accident in 2017, no clear source. 5. History of impaired glucose tolerance. STUDIES WHILE IN THE HOSPITAL: 1. Left lower extremity ultrasound, impression: There is occlusive thrombus extending from the inferior popliteal vein into the tibioperoneal trunk and anterior tibial vein. There is partially occlusive thrombus in the proximal left great saphenous vein from the saphenofemoral junction to the level of the knee, please correspond to prior selective vein ablation procedures. 2. Chest x-ray 2 view, impression: Patchy airspace disease of the left lung suggestive of early consolidation, recommend followup until resolution to exclude underlying pulmonary parenchymal pathology. 3. CTA chest, impression: Multilobar pulmonary emboli coalescing and extending into the right mainstem pulmonary artery. There are multiple segmental pulmonary emboli in the left lower lobe extending into the left lower lobe pulmonary artery. Again seen is pleuritic calcification at the left lung, similar appearance to the 07/16/18 CT of chest. 4. Transthoracic echocardiogram, summary: LV systolic function hyperdynamic, EF 65% to 70%, wall motion normal, no regional wall motion abnormalities. RV cavity size normal. Wall thickness mildly to moderately increased. Trace MR. Trace AR. Mild TR. Pulmonary artery systolic pressure severely elevated, estimated to be 61 mmHg. DISCHARGE MEDICATIONS: Home medications: 1. Ascorbic acid 500 mg p.o. daily. 2. Atorvastatin 40 mg p.o. daily. 3. Lumigan 0.01% ophthalmic 1 drop to right eye at bedtime. 4. Cosopt 1 drop to right eye b.i.d. 5. Lisinopril 5 mg p.o. daily. 6. Loratadine/pseudoephedrine 1 tab p.o. b.i.d. p.r.n. allergy symptoms. 7. Metformin 500 mg p.o. daily. 8. Multivitamin/minerals 1 tab p.o. daily. 9. Ranitidine 150 mg p.o. b.i.d. p.r.n. reflux. New home medications: 1. Rivaroxaban 15 mg p.o. q.12 hours x21 days, then decrease to 20 mg p.o. daily. HISTORY OF PRESENT ILLNESS/HOSPITAL COURSE: Mr. Mcduffie is a 63-year-old male with past medical history of VTE x2, unprovoked; hypertension; hyperlipidemia; history of CVA in 2017 without known source, who presented to the ER on with complaints of shortness of breath. He also complained of left calf tenderness. For full and complete details, please see the history and physical dictated by Dr. Charlotte Galarza, but in short, the patient presented with these symptoms. An ultrasound of the left lower extremity revealed DVT. CTA of the chest revealed bilateral pulmonary emboli. The patient was started on Xarelto 15 b.i.d. and admitted to observation. Tele showed normal sinus rhythm throughout his stay. It was recommended that the patient follow up with his primary care provider regarding further testing and hypercoagulable work up as well as referral to Hematology. A transthoracic echocardiogram was performed showing hyperdynamic EF and severely increased systolic pressure at 61 mmHg, this is likely due to pulmonary embolism. It is recommended that he repeat echo in 3 months to ensure resolution of elevated pulmonary artery systolic pressure. At the time of discharge, the patient denies shortness of breath, cough, calf pain, or tenderness. He has been walking to the halls without any difficulty, without any shortness of breath. He denies headache, dizziness, lightheadedness, vision changes, dysphagia, chest pain, shortness of breath, abdominal pain, nausea, vomiting, diarrhea, constipation, myalgias, arthralgias. He is eager to be discharged home. REVIEW OF SYSTEMS: A 14-point review of systems has been performed and all the pertinent positives and negatives are in the HPI. All other systems are negative. PHYSICAL EXAMINATION: General: Mr. Mcduffie is a well-developed, well-nourished , overweight, middle-aged male who is sitting up in bed. He appears comfortable. He appears to be in no acute distress, no respiratory distress. HEENT: PERRL. EOMI. Nonicteric sclerae. Hearing grossly intact. Oral mucous membranes are moist. There are no lesions. The pharynx is clear. The palate elevates symmetrically. Tongue is at midline. Pulmonary: Symmetrical chest expansion without use of accessory muscles. Lungs: Clear to auscultation bilaterally without rhonchi, wheezes, or rubs. No digital clubbing or cyanosis. Abdomen: Flat bowel sounds in all quadrants, soft, nontender to palpation. Musculoskeletal: Full range of motion without pain or deformities. Negative Homans sign bilaterally. No palpable cords. Neuro: The patient is awake. He is alert and oriented x3 with cranial nerves grossly intact. Moves all extremities. 5/5 strength bilaterally. Enforcement Manager strength equal. Vital Signs: Temperature 98.6 oral, heart rate 80, respiratory rate 20, oxygen saturation 94% on room air, blood pressure 147/83. DISCHARGE PLAN: Mr. Mcduffie will be discharged to home. CONDITION: Good. DIET: Heart healthy. ACTIVITY: As tolerated. MEDICATIONS: 1. Continue Xarelto 15 mg p.o. b.i.d. x21 days, then decrease to Xarelto 20 mg p.o. daily (please obtain order for 20 mg Xarelto from PCP). 2. Discontinue clopidogrel. EDUCATION: 1. Recommend repeat echo in approximately 3 months to follow up on pulmonary artery pressure. 2. Follow up with primary care provider in 4 to 7 days to discuss recent hospitalization, obtaining hypercoagulable workup, hematology referral, new home medications including refill on Xarelto 20 mg p.o. daily. 3. Follow up with Hematology. 4. Return to the ER or nearest hospital if you experience any worsening of symptoms, chest pain or discomfort, shortness of breath, dizziness, lightheadedness, loss of consciousness, high fevers, chills, night sweats, or any other worrisome signs or symptoms. This is a summarized report of a complex medical history and hospital stay. For further details, please see the entire medical record. TIME SPENT: Approximately 30 minutes were spent on this discharge, greater than half that time was spent [id number] with the patient discussing discharge plans and instructions. HERBERT IKM [id number]/[facility] #: [id number] IDALIA
== END 2019-01-18 15:48 | disposition home or self-care (01) ==
LOC: ED 15:10 → MEDTELE 18:27
PROVIDERS: ADMIT Internal Medicine; ATTEND Internal Medicine
DX: R06.02 Shortness of breath (principal); R73.03 Prediabetes; Z86.718 Personal history of other venous thrombosis and embolism; I10 Essential (primary) hypertension; J44.9 Chronic obstructive pulmonary disease, unspecified; Z87.891 Personal history of nicotine dependence; I26.99 Other pulmonary embolism without acute cor pulmonale; I82.402 Acute embolism and thrombosis of unspecified deep veins of left lower extremity; E78.5 Hyperlipidemia, unspecified; Z86.73 Personal history of transient ischemic attack (TIA), and cerebral infarction without residual deficits; R73.02 Impaired glucose tolerance (oral); Z79.899 Other long term (current) drug therapy; Z79.01 Long term (current) use of anticoagulants; R94.31 Abnormal electrocardiogram [ECG] [EKG]; Z88.0 Allergy status to penicillin
CPT/HCPCS: 36415; 71046; 71275; 80048; 80053; 83605; 83880; 84484; 85025; 85379; 86140; 93005; 93306; 99284; A9270-GY; C8929; G0378; Q9967